=== PATIENT | female | born 1955 | race Caucasian/White ===

== ENCOUNTER 2021-05-17 08:36 | Outpatient (CLI) | payer SELFPAY ==
--- NOTE | 2021-05-17 09:11 | XRAY Report ---
PROCEDURE: Chest 2 View X-Ray INDICATIONS: COUGH TECHNIQUE: 2 view(s) of the chest. COMPARISON: None. FINDINGS: Surgical changes and devices: None. Lungs and pleura: No significant pleural effusion. No pneumothorax. Mild diffuse interstitial promin ence. No consolidation seen. Left nipple shadow. Mediastinum: Mediastinal contours are normal. Heart size is normal. Bones and chest wall: No suspicious bony abnormalities. Soft tissues appear unremarkable. IMPRESSION: Mild diffuse interstitial prominence. This could be seen in atypical pneumonia, pulmonary vasculature engorgement, interstitial lung disease, or atelectasis. Consider further evaluation with high-resolution chest CT in this patient with chronic cough. Reviewed by: Vineet De La Rosa MD on 05/17/2021 9:10 AM [facility] Approved by: Vineet De La Rosa MD on 05/17/2021 9:10 AM [facility] Station ID: [id number]
== END 2021-05-17 23:59 | disposition home or self-care (01) ==
LOC: DI.N 08:36
PROVIDERS: ATTEND Family Medicine
DX: R91.8 Other nonspecific abnormal finding of lung field (principal)

== ENCOUNTER 2021-05-17 15:45 | Outpatient (CLI) | payer SELFPAY | END 2021-05-17 23:59 | disposition home or self-care (01) | LOC: LAB.N 15:45 | PROVIDERS: ATTEND Family Medicine | DX: R05.3 Chronic cough (principal) | CPT/HCPCS: 36415; 86480 ==

== ENCOUNTER 2021-05-25 13:45 | Outpatient (CLI) | payer SELFPAY ==
[2021-05-25 14:10] LABS: BASOPHILS % (AUTO) 0.4 %; EOSINOPHILS # (AUTO) 0.1 10^3/uL (0.0-0.7); EOSINOPHILS % (AUTO) 0.8 %; HCT - HEMATOCRIT 49.9 % (37.0-47.0); LYMPHOCYTES # (AUTO) 1.2 10^3/uL (1.5-3.5); LYMPHOCYTES % (AUTO) 16.1 %; MEAN CORPUSCULAR HEMOGLOBIN 29.6 pg (27.0-31.0); MEAN CORPUSCULAR HGB CONC 32.1 g/dL (32.0-36.0); MEAN CORPUSCULAR VOLUME 92.4 fL (81.0-99.0); MEAN PLATELET VOLUME 8.9 fL (7.9-10.8); MONOCYTES # (AUTO) 0.7 10^3/uL (0.0-1.0); MONOCYTES % (AUTO) 9.4 %; NEUTROPHILS # (AUTO) 5.2 10^3/uL (1.5-6.6); NEUTROPHILS % (AUTO) 72.9 %; PLT - PLATELET COUNT 296 10^3/uL (130-450); RED CELL DISTRIBUTION WIDTH 14.3 % (12.0-15.0); WHITE BLOOD COUNT 7.1 x10^3/uL (4.8-10.8)
[2021-05-25 14:36] LABS: ALBUMIN 4.3 g/dL (3.2-5.5); ALBUMIN/GLOBULIN RATIO 1.1 (1.0-2.2); CALCIUM 9.8 mg/dL (8.5-10.3); CREATININE 0.7 mg/dL (0.4-1.0); CRP - C-REACTIVE PROTEIN 1.4 mg/dL (0-1.0); POTASSIUM 3.8 mmol/L (3.5-5.0); TOTAL PROTEIN 8.2 g/dL (6.7-8.2); URIC ACID 6.4 mg/dL (2.6-7.2)
[2021-05-25 16:33] LABS: RHEUMATOID FACTOR NEGATIVE (Negative)
== END 2021-05-25 13:46 | disposition home or self-care (01) ==
LOC: LAB 13:45
PROVIDERS: ATTEND Internal Medicine
DX: R59.1 Generalized enlarged lymph nodes (principal); Z79.899 Other long term (current) drug therapy; M25.50 Pain in unspecified joint
CPT/HCPCS: 36415; 80053; 83615; 84550; 85025; 85651; 86038; 86140; 86200; 86430

== ENCOUNTER 2021-06-01 13:17 | Outpatient (CLI) | payer SELFPAY | END 2021-06-01 13:18 | disposition home or self-care (01) | LOC: RT 13:17 | PROVIDERS: ATTEND Internal Medicine | DX: R05.3 Chronic cough (principal) | CPT/HCPCS: 94010 ==

== ENCOUNTER 2021-06-08 08:00 | Outpatient (CLI) | payer SELFPAY | END 2021-06-08 23:59 | LOC: LAB.F 08:00 | PROVIDERS: ATTEND Internal Medicine | DX: J47.1 Bronchiectasis with (acute) exacerbation (principal); R94.2 Abnormal results of pulmonary function studies | CPT/HCPCS: 87070; 87205 ==

== ENCOUNTER 2021-06-09 13:22 | Outpatient (CLI) | payer SELFPAY ==
--- NOTE | 2021-06-09 15:29 | CT Report ---
PROCEDURE: CHEST WO INDICATIONS: BRONCHIECTASIS TECHNIQUE: Noncontrast 1mm axial images were acquired from the pulmonary apices to the posterior costophrenic an gles. Axial 5 mm soft tissue kernel reconstructions were performed as well as 8 mm axial MIP and cor onal and sagittal 5 mm reformations. For radiation dose reduction, the following was used: automate d exposure control, adjustment of mA and/or kV according to patient size. COMPARISON: CXR 05/17/2021. FINDINGS: Image quality: Excellent. Lungs and pleura: Innumerable pulmonary nodules, the majority are small. Left upper lobe medial pulm onary mass measuring 3.6 x 3 cm, (4/66). Left lower lobe pulmonary nodule measuring 1.2 cm, (4/204). No acute air space opacities. No pneumothorax. Small left pleural effusion. Mild thickening at the le ft lateral pleura. No effusion on the right. Central and peripheral airways are patent and normal in caliber. Mediastinum: Heart size is normal. No pericardial effusion. Anterior mediastinal node measuring 1.4 cm, (3/14). Thoracic aorta and central pulmonary arteries are normal in size. Esophagus is normal i n caliber. No hiatal hernia. Bones and chest wall: Irregular hypodense lesion in the T10 and T11 vertebral bodies, (10/39). No ve rtebral body compression fractures. No axillary or supraclavicular adenopathy by size criteria. The thyroid is normal in size and there are no incidental findings. Abdomen: Ill-defined hypodense lesions in the liver most likely resents meniscectomy disease. Gallsto mauro. No adrenal nodule. IMPRESSION: Findings most consistent with multifocal metastatic disease. 1. Left upper lobe mass measuring 3.6 cm. Left lower lobe pulmonary nodule measuring 1.2 cm. Innumera ble small pulmonary nodules. 2. Anterior mediastinal lymph node measuring 1.4 cm. 3. Small left pleural effusion. 4. Ill-defined liver lesions. 5. T10 and T11 heterogeneous sclerotic lesions. CT abdomen and pelvis with IV contrast would be helpful for further evaluation. Reviewed by: Vineet De La Rosa MD on 06/09/2021 3:27 PM PST Approved by: Vineet De La Rosa MD on 06/09/2021 3:27 PM PST Station ID: [id number]
== END 2021-06-09 13:23 | disposition home or self-care (01) ==
LOC: DI 13:22
PROVIDERS: ATTEND Internal Medicine
DX: J47.1 Bronchiectasis with (acute) exacerbation (principal); J90 Pleural effusion, not elsewhere classified; R91.8 Other nonspecific abnormal finding of lung field

== ENCOUNTER 2021-07-05 18:14 | Outpatient (CLI) | payer BC, MEDICAID ==
[~2021-07-05 18:14] MED LIST: IOPAMIDOL-300 50 ML VIAL ONE; iohexoL-300 100 ML VIAL ONE
[2021-07-05] MEDS ORDERED: iohexoL-300 100 ML VIAL IVP ONE (21:59)
[2021-07-05] MEDS ORDERED: IOPAMIDOL-300 50 ML VIAL PO ONE (21:59)
[2021-07-05 22:11] LABS: CREATININE 0.7 mg/dL (0.4-1.0)
[2021-07-05 22:38] LABS: INR 1.3 (0.8-1.2); PARTIAL THROMBOPLASTIN TIME 32.3 secs (24.9-33.3); PT - PROTHROMBIN TIME 14.4 secs (9.9-12.6)
--- NOTE | 2021-07-06 08:16 | CT Report ---
PROCEDURE: ABD & PELVIS CT W/CONTRAST INDICATIONS: Lung CA, Omni 300 100ml, Isovue 300 PO 50m; Prior: none CONTRAST: Omnipaque 300, 100 mL TECHNIQUE: After the administration of oral and intravenous contrast, 5 mm thick sections acquired from the diap hragms to the symphysis. 5 mm thick coronal and sagittal reformats were acquired. For radiation dos e reduction, the following was used: automated exposure control, adjustment of mA and/or kV accordin g to patient size. COMPARISON: CT chest from today, CT chest dated 06/09/2021 FINDINGS: Image quality: Excellent. ABDOMEN: Lung bases: Too numerous to count tiny pulmonary metastatic lesions, in a pattern suggestive of milia ry spread of a static disease. Additionally, there is a lesion in the left lung base just anterior to the left pleural effusion which measures approximately 1.1 cm. Please refer to a different report fo r pulmonary findings. Moderate left pleural effusion. Heart size is normal. Solid organs: There is liver metastatic disease present. On image 18/5 is a posterior segment right l obe liver lesion measuring 2.9 cm. On image 19/5 is a 2.6 cm posterior segment right lobe liver lesio n. There is a probable splenic metastatic lesion measuring 1.8 cm on image 20/5. Gallbladder contains multiple gallstones. Biliary system is non dilated. Pancreas enhances normally. No adrenal nodule s. Kidneys demonstrate normal size and enhancement, without hydronephrosis. Peritoneum and bowel: Bowel loops demonstrate normal wall thickness and caliber. No free fluid or a ir. Nodes and vessels: No retroperitoneal or mesenteric adenopathy by size criteria. Aorta and inferior vena cava are normal in size. Miscellaneous: No ventral hernias. PELVIS: Genitourinary: Bladder wall thickness is normal. Miscellaneous: No inguinal hernias or adenopathy. Bones: There is mixed lytic and blastic metastatic disease involving T10 and T11 vertebral bodies. Th ere is a lytic lesion involving the right side of S1. With possible soft tissue mass extending into t he right S1 sacral canal, potentially resulting in a right S1 radiculopathy. As lumbar degenerative c hange. IMPRESSION: 1. Remarkably extensive tiny metastatic disease in the lungs, consistent with miliary spread of metas tatic disease. Please refer to a separate report for CT chest findings. 2. Associated left pleural effusion. 3. Hepatic metastatic disease. 4. Probable splenic metastatic disease. 5. Bony metastatic disease, including mixed lytic and sclerotic lesions of T10 and T11, as well as a lytic disease of the right side of S1 with possible associated soft tissue mass in the right S1 sacra l alae. Reviewed by: Pranav Gunter MD on 07/05/2021 4:47 PM PST Approved by: Pranav Gunter MD on 07/05/2021 4:47 PM PST Station ID: [id number]
--- NOTE | 2021-07-06 08:24 | CT Report ---
PROCEDURE: CHEST W INDICATIONS: LUNG CA CONTRAST: IV CONTRAST: Isovue 300 ml: 100 PO CONTRAST: Isovue 300 ml50 TECHNIQUE: After the administration of intravenous contrast, 1 mm axial images were acquired from the pulmonary apices through the posterior costophrenic angles. Axial 5 mm soft tissue kernel reconstructions were performed as well as 8 mm axial MIP and coronal and sagittal 5 mm reformations. For radiation dose reduction, the following was used: automated exposure control, adjustment of mA and/or kV according to patient size. COMPARISON: CT dated 06/09/2021 FINDINGS: Image quality: Excellent. Lungs and pleura: No acute air space opacities. There is a mass within the left upper lobe anterome dially, as before, which is not significantly changed in size, measuring roughly 45 mm anteroposterio r by 30 mm transverse. Multiple small bilateral left greater than right pulmonary nodules are present , as before, largest of which is in the left lung base posterior laterally, measuring roughly 10 mm d iameter, as before. No pneumothorax. Small left pleural effusion. Central and peripheral airways are patent and normal in caliber. Mediastinum: Heart size is normal. No pericardial effusion. No change in prevascular lymph node me asuring 10 mm short axis.. Thoracic aorta and central pulmonary arteries are normal in size. Esopha simona is normal in caliber. No hiatal hernia. Bones and chest wall: Ill-defined lytic and sclerotic foci within the T10 and T11 vertebral bodies pr esent, as before. There is evidence of paraspinal soft tissue extension and anterior epidural spread. . No vertebral body compression fractures. No axillary or supraclavicular adenopathy by size criter ia. The thyroid is normal in size and there are no incidental findings.. Abdomen: Visualized portions of the upper abdomen demonstrate no significant change in ill-defined h epatic lesions. IMPRESSION: 1. No significant change in left upper lobe mass and multiple bilateral pulmonary nodules. 2. Increased, small left pleural effusion. 3. No change in mildly enlarged anterior mediastinal lymph node. 4. No significant change in lower thoracic metastases associated with probable epidural tumor spread. Initial further assessment with thoracic spine MRI with and without intravenous contrast is recommen ded. CLINICAL RECOMMENDATION STATEMENTS: In patients <35 years with an ITN detected on CT, MRI, or extrathyroidal ultrasound, the Committee re commends further evaluation with dedicated thyroid ultrasound if the nodule is "e1 cm and has no susp icious imaging features, and if the patient has normal life expectancy. In patients "e35 years with an ITN detected on CT, MRI, or extrathyroidal ultrasound, the Committee r ecommends further evaluation with dedicated thyroid ultrasound if the nodule is "e1.5 cm and has no s uspicious imaging features, and if the patient has normal life expectancy. (ACR, 2014) Reviewed by: Jose Garduno MD on 07/06/2021 8:23 AM PST Approved by: Jose Garduno MD on 07/06/2021 8:23 AM PST Station ID: [id number]
== END 2021-07-05 18:15 | disposition home or self-care (01) ==
LOC: DI 18:14
PROVIDERS: ATTEND Internal Medicine Hematology & Oncology
DX: R94.2 Abnormal results of pulmonary function studies (principal); J47.1 Bronchiectasis with (acute) exacerbation; C34.12 Malignant neoplasm of upper lobe, left bronchus or lung; R91.8 Other nonspecific abnormal finding of lung field; J90 Pleural effusion, not elsewhere classified; C79.51 Secondary malignant neoplasm of bone; R59.0 Localized enlarged lymph nodes; C78.02 Secondary malignant neoplasm of left lung; C78.01 Secondary malignant neoplasm of right lung; C78.7 Secondary malignant neoplasm of liver and intrahepatic bile duct; R93.89 Abnormal findings on diagnostic imaging of other specified body structures
CPT/HCPCS: 36415; 71260; 74177; 82565; 85049; 85610; 85730; Q9967

== ENCOUNTER 2021-07-06 09:00 | Outpatient (CLI) | payer BC, MEDICAID ==
--- NOTE | 2021-07-06 18:14 | CONSULTATION NOTE ---
Palliative Care Consultation - Referral Referring Provider: Dr. Nely Ocampo Time of Visit: [id number] Referral setting: Home Referral Reason: Met cancer of unknown primary/Pain of neoplastic origin/failure to thrive - Information Sources Records reviewed: Previous records reviewed History/Review of Systems obtained from: Patient, Family ( Aris present) Exam limitations: No limitations - History of Present Illness Brief History of Present Illness: This is an unfortunate 65-year-old woman who has had several years of fluctuating health. She reports a history several years back [id number], where doctors were trying to work her up for most likely an autoimmune disorder, looking at RA, lupus, fibromyalgia without ever defining her underlying etiology. She reports she at one point was on 24 medications and quite drugged up, including pain medications, baclofen, and long-term high-dose prednisone. She became bedbound, continued to decline functionally, and lost all abigail in the medical system. She did overtime improve her health by weaning herself off the medications, changing her diet, concentrating on her relationship with God, and finding a distraction in and out with her creativity. She did take up photography, newspaper writing, and was doing fairly well though did describe intermittent severe flares of pain, but would resolve after a few days. These flares were every few weeks to months, and then have become more often. In 2018 she developed a severe cough, that included significant amounts of phlegm and over the last several months, worsening bone and joint pain, and now is quite debilitated. She was feeling at this point because it was persistent, most likely was not serious, and is not certified at her underlying diagnosis of cancer. Did seek evaluation at urgent care, which they did do a chest x-ray and recommended CT scan. She did see primary care, where was getting a work-up and sent out for luminary symptoms. She did get a CT scan which showed concern for malignancy on 06/09. Patient moved to [facility] about 2 years ago, unfortunately with the move came Covid, and has been quite isolated. She had hoped to become engaged in art community, but continued to have failing health. She has continued to lose significant amounts of weight, dropped about 27 pounds over the last month, reports pressure in her chest, difficulty taking more than just fluids, can take small amounts of soft things, is pushing fluids but is not meeting caloric needs. She reports when she eats she has severe stomach pain, makes her more lethargic and causes cramping. She is having trouble with swallowing, this is related to choking and phelgm. She presents with escalating and uncontrolled pain, she was given some oxycodone by oncology, but has been hesitant to use this as there is only a small quantity. We did discuss the small quantity was prescribed in preparation for palliative care referral. Patient reports her pain is at 8 out of 10, is quite limiting. It worsens with any weightbearing. She identifies it in multiple different spots, most acutely over her right abdominal area, severe tenderness with palpation. She has a spot on her left shoulder up in her right hip area feeling like it may "break". She has pain in her tailbone, up her thoracic spine And has not really been able to get much rest. She does not have any numbness and tingling, but does have bilateral knee pain and a spot in her left ankle. She is barely ambulatory, secondary to pain, they are obtaining hopefully a bedside commode from [employer]. She has not been able to shower, secondary to pain and fatigue and weakness. She continues to struggle with phlegm and choking, does have an albuterol nebulizer that she is using 3 times a day with some improvement with this. She also describes some vision changes, and intermittent headaches as well as periorbital numbness that fluctuates. Patient is getting a work-up, has just obtained a CT scan of the chest and abdomen, and review at this. The lung showed numerous too many to count pulmonary metastatic lesions suggestive of a miliary spread of static disease, there is a lesion in the left lung base and a left pleural effusion. There is liver metastatic disease present, with lesion of 2.9 cm, noted probable splenic metastatic disease, and bony metastatic disease including mixed lytic and sclerotic lesions of T10 and T11 which does correlate with her area of pain, as well as the right side of S1 with a possible soft tissue mass on S1 sacral area.She is pending a liver biopsy on 07/09. She has had functional decline, she is quite appropriately depressed and tearful, and recognizing the seriousness of her illness. It is very difficult for them to get her out of the house. Medical/Surgical History - Past Medical History Cardiovascular: reports: None Respiratory: reports: Shortness of breath, Other (persistent cough since 2018) Neuro: Headaches Endocrine/Autoimmune: reports: Other (poss hx of immune dx of lupus/RA/fibromyalgia) Psych: reports: Depression, Anxiety Musculoskeletal: reports: Osteoarthritis, Fibromyalgia, Fatigue MRSA Hx?: No - Past Surgical History /[employer]INTS [employer]IMMER: reports: section, Dilation and currettage Social History - Living Situation Living arrangement: At home Living Situation: With spouse/s.o. Support System: Patient and have been for 25 years, her works here at the hospital and needs to continue working as much as possible. They are exploring [place] have been in touch with seniors information services, recommended for further follow-up secondary to the length of time this takes. At this point time she can get to the bathroom, but is at high risk for falls. They do not have children nor any family nearby. They have not been here long enough to set up community, and moved right when Covid was starting. Family History - Family History Family History: Mother: , Father: Medications/Allergies - Medications Home Medications: Ambulatory Orders Medication Instructions Recorded Confirmed oxyCODONE [Roxicodone] 10 mg PO Q3HR PRN 06/29/21 07/06/21 Albuterol 1 amp INH TID 07/06/21 07/06/21 Ondansetron HCl [Zofran] 4 mg PO Q6HR PRN 07/06/21 07/06/21 Senna [Senokot] 2 tab PO DAILY MDD 8 tabs 07/06/21 07/06/21 dexAMETHasone [Decadron] 2 mg PO BIDWM 07/06/21 07/06/21 guaiFENesin [Giltuss Ex] 400 mg PO Q4HR PRN 07/06/21 07/06/21 polyethylene glycoL 3350 [Miralax] 17 gm PO DAILY MDD bid 07/06/21 07/06/21 - Allergies Allergies/Adverse Reactions: Allergies Allergy/AdvReac Type Severity Reaction Status Date / Time acetaminophen Allergy Unknown Verified 07/07/21 10:15 Penicillins Allergy Unknown Verified 07/07/21 10:15 Review of Systems - Constitutional Constitutional: reports: Fatigue (worsening), Weakness, Poor appetite, Weight loss. denies: Fever, Chills - Eyes Eyes: reports: Blurred vision, Vision loss - Ears, Nose & Throat Ears, Nose & Throat: reports: Hearing loss, Dry mouth - Cardiovascular Cardiovascular: reports: Lightheadedness, Exertional dyspnea, Decr. exercise tolerance - Respiratory Respiratory: reports: Cough (coughing "spasms" lasting 5 minutes with trying to move phelgm; has helped with albuteral), SOB at rest, SOB with exertion. denies: Wheezing, Hemoptysis - Gastrointestinal Gastrointestinal: reports: Abdominal pain, Constipation (rare BM since not eating), Nausea, Vomiting (triggered by coughing), Poor appetite, Early satiety. denies: Reflux/heartburn - Genitourinary Genitourinary: reports: Frequency - Musculoskeletal Musculoskeletal: reports: Muscle pain, Back pain, Muscle aches, Stiffness, Limited range of motion, Muscle weakness, Joint pain - Integumentary Integumentary: reports: Dryness - Neurological Neurological: reports: General weakness, Headache, Dizziness - Psychiatric Psychiatric: reports: Depression, Anxiety - All Other Systems All Other Systems: reports: Reviewed and negative Physical Exam - Vital Signs Temperature: 97.3 C Pulse Rate: 97 Respiratory Rate: 18 O2 Saturation: 93 (ra @ rest) Blood Pressure: 138/74 - Physical Exam General Appearance: positive: Alert, Moderate distress, Anxious Eyes Bilateral: positive: Normal inspection ENT: negative: Oral lesions Neck: positive: Trachea midline Cardiovascular: positive: Tachycardia Respiratory: positive: Diminished throughout. negative: No respiratory distress (with any effort RR), Wheezes, Rales, Rhonchi Abdomen: positive: Soft, Tenderness, Guarding Skin: positive: Pallor, Dryness Extremities: positive: No pedal edema Neurologic/Psychiatric: positive: Oriented x3, Depressed mood/affect, Flat affect, Other (tearful and anxious) Palliative Care - POLST Patient has POLST: No Pain: Pain worsening, Location (see HPI multiple areas of pain and discomfort) Tiredness/Fatigue: Severe (7-10) Drowsiness/Sedation: Mild (1-3) Nausea: Moderate (4-6), With vomiting Anorexia: Severe (7-10) Dyspnea: Severe (7-10) Depression: Severe (7-10) Anxiety: Severe (7-10) Feelings of wellbeing/Perceived Quality of Life: Poor, Worsening Sleep: Sleeps poorly Constipation: Yes, Unmanaged Performance Status: Patient has had a dramatic decline in her functional status, is mostly in the recliner or the bed. She has significant pain and anxious about weightbearing with having something "break". She is quite weak and deconditioned. She is not been able to shower, they do need some personal care assistance. - Palliative Care Discussion: Patient has significant distrust of the medical system, given her history both in the past, and most recently in the context of delivery of her news of her cancer. She very much enjoyed her visit with oncology, but is worried that there will be little to offer given how seriously ill and how much she has declined. She is quite tearful through the visit, does recognize the seriousness of her illness, after much discussion weighing benefits of burdens, we did discuss at any point could choose to transition to comfort focused care or hospice. At this point they would like to move forward with the biopsy, and have more information, but her pain is poorly controlled and is impacting her will to continue. She does have a deep abigail, is not connected with any mormon, is open to having the [employer]mo business analyst come provide support. We will make a referral. Both she and her are overwhelmed, they do need more resources, currently working with [employer], did have a Social Security interview at the end of my visit, and wondering what resources she can access. They are going to follow-up with [employer] for equipment recommended obtaining walker as soon as possible. Will revisit advanced care planning at Monday visit given her acute pain crisis currently. Results - Lab Results Lab results reviewed: Yes Impression and Recommendations - Palliative Care Impression: This is a 65-year-old woman who presents with cancer of unknown origin, with known lung mass and nodules, liver mets, and bony mets. She presents in acute pain crisis, appropriately anxious and depressed, awaiting further staging and work-up to further define goals of care. Palliative care providing support for pain and symptom management, advance care planning, and coordination of care. Recommendations/Counseling Done: 1. Pain of neoplastic origin. Patient presents with multifactorial pain, including deep aching visceral pain and tenderness, bony pain, muscle and joint pain, and headache. Patient has trialed small dose oxycodone with very little effect, and anxious to not "run out". We will go ahead and titrate to effect, patient has been instructed to use 2 tabs every 3 hours as needed and keep track, will take next 24 to 48 hours total and changed to long-acting. Counseling provided regarding pain management and principles. We will also start dexamethasone 2 mg twice daily a day with food/cracker secondary to pain and poor appetite. 3. Cough. This appears to be fairly significant, she does have some response to albuterol nebulizer, does break it up to be able to express the phlegm. Did recommend guaifenesin syrup 400 mg every 46 hours to thin secretions, and can use or add saline "fishes" in between nebulized solution secretions. We will continue to monitor for appropriate medications for nebulizer. 3. Anorexia. Patient has early satiety, pain with eating, difficulty swallowing and choking both related to phlegm and feeling obstructed. Patient is getting less than her adequate calories, we will go ahead and recommend resource breeze supplements 2-3 times a day, this does not have any milk product in it. Recommended small frequent high-calorie fluids, hopefully with dex amethasone may improve her appetite. Patient also with low-grade nausea, ondansetron 4 mg ordered for 1 every every 6 hours as needed for nausea and vomiting. Patient is also been constipated. 4. Constipation. Patient minimal bowel movements, though attributes this to decreased intake. We did discuss still needs to have a regular bowel movement every 2448 hrs. even if a small amount. Will obtain and start MiraLAX 1 capful daily, and senna concentrate 8.6 mg 2 tabs at bedtime. Counseling provided regarding bowel program and titration. Instructions written out. 5. Generalized weakness. Patient at high risk for falls, did provide number for lift assist if patient needs assistance from the floor given her fragile condition. Did recommend obtaining walker [facility] for balance and offloading of her hip area. Also recommended reach out to [employer] to get a wheelchair as well as rolling walker and commode. 6. Anxiety. This is multifactorial and appropriate given her situation, at this point in time will await further pharmacologic intervention, until pain better controlled. 7. Advanced care planning. Patient without any advance care planning documents, will revisit with next visit. Counseling provided regarding the continuum of care, trying to tease out goals of care, patient does recognize the seriousness of her illness at this point in time they would like to proceed with the biopsy and continue to weigh benefits and burdens of treatment options as they are presented. Patient though presents with an ECOG 3, is nonambulatory, significant weight loss, high symptom burden, and significant functional decline over the last several weeks. 75 minutes was given 50% of this done in counseling regarding pain and symptom management, support for anxiety, anticipatory guidance and role of palliative care, development of rapport. Plan for Monday visit
== END 2021-07-06 09:01 | disposition home or self-care (01) ==
LOC: PC 09:00
PROVIDERS: ATTEND Nurse Practitioner Adult Health
DX: Z51.5 Encounter for palliative care (principal); G89.3 Neoplasm related pain (acute) (chronic); R05.3 Chronic cough; R63.0 Anorexia; R63.4 Abnormal weight loss; R68.81 Early satiety; R13.10 Dysphagia, unspecified; R11.0 Nausea; K59.00 Constipation, unspecified; R53.1 Weakness; F41.9 Anxiety disorder, unspecified; R06.02 Shortness of breath; R53.83 Other fatigue; C79.51 Secondary malignant neoplasm of bone; C78.00 Secondary malignant neoplasm of unspecified lung; C78.7 Secondary malignant neoplasm of liver and intrahepatic bile duct; J90 Pleural effusion, not elsewhere classified; C80.1 Malignant (primary) neoplasm, unspecified; Z74.1 Need for assistance with personal care; Z60.8 Other problems related to social environment; Z74.09 Other reduced mobility
CPT/HCPCS: 99345

== ENCOUNTER 2021-07-08 07:45 | Outpatient (CLI) | payer BC, MEDICAID ==
[2021-07-08] MEDS ORDERED: LACTATED RINGERS 1,000 ML IV ONE ×2 (08:15→11:35)
[2021-07-08] MEDS ORDERED: lidocaine 1% 20 ML MDV ONE (10:24)
[2021-07-08] MEDS ORDERED: MIDAZOLAM 2 MG/2 ML VIAL ONE (10:45)
[2021-07-08] MEDS ORDERED: fentaNYL 100 MCG/2 ML VIAL ONE (10:46)
[2021-07-08] MEDS ORDERED: iohexoL-300 100 ML VIAL ONE (11:51)
--- NOTE | 2021-07-08 12:23 | XRAY Report ---
PROCEDURE: Chest 1 View X-Ray INDICATIONS: IMEDIATE AFTER LUNG BIOPSEY TECHNIQUE: One view of the chest was acquired. COMPARISON: Chest CT 07/05/2021 FINDINGS: Surgical changes and devices: None. Lungs and pleura: No pneumothorax post left lung biopsy. There is persistent opacity at the left lung base consistent with small persistent effusion. There is a diffuse micronodular pattern in the lungs bilaterally. Left suprahilar lung mass projects over the aortic arch region. Mediastinum: Mediastinal contours appear normal. Heart size is normal. Bones and chest wall: No suspicious bony lesions. Overlying soft tissues appear unremarkable. IMPRESSION: 1. No pneumothorax post left lung mass biopsy. 2. Persistent small left pleural effusion and diffuse micronodular pattern. Reviewed by: Yamel Jaimes MD on 07/08/2021 12:21 PM PST Approved by: Yamel Jaimes MD on 07/08/2021 12:21 PM PST Station ID: [id number]
--- NOTE | 2021-07-08 16:03 | XRAY Report ---
PROCEDURE: Chest 1 View X-Ray INDICATIONS: 2HR POST LUNG BIOPSEY COMMENTS: 2hr post lung biopsey PRIORS: today TECHNIQUE: One view of the chest was acquired. COMPARISON: Chest x-ray from earlier today FINDINGS: Surgical changes and devices: None. Lungs and pleura: Density above the aortic knob consistent with known mass. There is elevation of th e left hemidiaphragm and blunting of the left costophrenic angle consistent with left pleural effusio n. No pneumothorax. Mediastinum: Mediastinal contours appear normal. Heart size is normal. Bones and chest wall: No suspicious bony lesions. Overlying soft tissues appear unremarkable. IMPRESSION: No pneumothorax status post lung biopsy. Reviewed by: Jeferson Jordan on 07/08/2021 4:02 PM [facility] Approved by: Jeferson Jordan on 07/08/2021 4:02 PM [facility] Station ID: [id number]
--- NOTE | 2021-07-08 16:03 | XRAY Report ---
PROCEDURE: Chest 1 View X-Ray INDICATIONS: 4HR POST LUNG BIOPSEY COMMENTS: 4 HOUR POST LUNG BIOPSY PRIORS: 07/08/21 TECHNIQUE: One view of the chest was acquired. COMPARISON: Chest x-ray from earlier today FINDINGS: Surgical changes and devices: None. Lungs and pleura: Density above the aortic knob consistent with known mass. There is elevation of th e left hemidiaphragm and blunting of the left costophrenic angle consistent with left pleural effusio n. No pneumothorax. Mediastinum: Mediastinal contours appear normal. Heart size is normal. Bones and chest wall: No suspicious bony lesions. Overlying soft tissues appear unremarkable. IMPRESSION: No pneumothorax status post lung biopsy. Reviewed by: Jeferson Jordan on 07/08/2021 4:02 PM [facility] Approved by: Jeferson Jordan on 07/08/2021 4:02 PM [facility] Station ID: [id number]
[2021-07-08 16:32] VITALS: BP 143/74
--- NOTE | 2021-07-08 16:37 | CT Report ---
PROCEDURE: LT LUNG BX PERC INDICATIONS: LUNG CA COMPARISON: CT of the chest dated 07/05/2021 PROCEDURE: 1. CT-guided lung biopsy. 2. Moderate sedation. TECHNIQUE: CT of the chest was performed with contrast demonstrating the targeted nodule in the left upper lobe and the position of the left internal mammary artery, as well as other vasculature. The patient was t hen placed in the CT and initial utility spray operator images were performed. The trajectory was planned and the over lying skin was marked. The area was prepped and draped in a sterile fashion. A timeout was performed to verify patient identity and the proposed procedure. Moderate sedation was administered by the nurs e. The overlying soft tissue was then anesthetized with lidocaine infiltration. A 17-gauge trocar was then advanced through the chest wall into the mass with no difficulty. The 18-gauge core biopsy was then deployed and a total of 2 core biopsies were obtained. The trocar was then removed. The patient tolerated procedure well without complication. FINDINGS: Initial CT demonstrated the mass and adjacent arteries. Intraprocedural CT demonstrates appropriate p lacement of the needle into the mass. Postprocedural CT demonstrates no pneumothorax, hemorrhage, or other complication. IMPRESSION: Successful CT-guided biopsy of a left upper lobe mass without complication. Reviewed by: Jeferson Jordan on 07/08/2021 4:36 PM PST Approved by: Jeferson Jordan on 07/08/2021 4:36 PM PST Station ID: [id number]
== END 2021-07-08 07:46 | disposition home or self-care (01) ==
LOC: DI 07:45
PROVIDERS: ATTEND Internal Medicine Hematology & Oncology
DX: C34.92 Malignant neoplasm of unspecified part of left bronchus or lung (principal); Z20.822 Contact with and (suspected) exposure to COVID-19
CPT/HCPCS: 32408; 87635; J7120; Q9967

== ENCOUNTER 2021-07-09 09:30 | Outpatient (CLI) | payer BC, MEDICAID ==
--- NOTE | 2021-07-09 15:47 | CONSULTATION NOTE ---
Palliative Care Follow Up - Referral Referring Provider: Dr. Nely Ocampo Time of Visit: [id number] Referral setting: Home Referral Reason: Pain of neoplastic origin/Met CA of unknown origin/Depression - Information Sources Records reviewed: Previous records reviewed History/Review of Systems obtained from: Patient Exam limitations: No limitations - History of Present Illness Update Brief HPI Update: This is a 65-year-old old woman who has recently been diagnosed with cancer of unknown origin, please see HPI from 07/06/2021 regarding for palliative care consultation. Patient had significant escalating uncontrolled pain, did start her on more aggressive regimen, today she reports "it is a world of difference", she is feeling both better physically and emotionally with her pain better controlled. She did have a biopsy yesterday CT-guided, they were able to do a lung biopsy. She tolerated it well. No complications. She has started on her morphine sustained release 30 mg, did hit some questions because of insurance, we will go ahead and bump her up to 30 mg 3 times daily, she is tolerating 3 oxycodone equals 15 mg every 3 hours [id number]. Her pain is mostly in her right groin, abdomen right upper quadrant, as well as her left shoulder and traveling pain to joints. She was able to start the dexamethasone also 2 mg twice daily, she has having a small amount of pruritus, which started recently. We will continue to monitor. She has had decreased coughing spasms, is using albuterol in small doses to keep her cough down. 1 thing she is continuing with is continued difficulty swallowing, and has been only able to take fluids or very soft/pured foods. She does feel like she is staying hydrated, but is getting less and her needed calories. She reports she did sleep fairly well for several hours, her bowels have still not moved, she is still having some nausea and gagging when she is attempting to eat. She is also complaining of dry mouth, she had been treated with Diflucan weekly, reports he feels back up, she does have dentures, she does present with symptoms and on observation signs of oral candidiasis. Past Medical History: History of an autoimmune disorder, possible RA, lupus, fibromyalgia. Osteoarthritis, persistent cough since 2018, depression, anxiety, headaches Social History - Living Situation Living arrangement: At home Living Situation: With spouse/s.o. Support System: Patient lives at home with her second , they have been for 25 years. She does have 3 children from a previous marriage, but is mostly estranged from her 3 sons. They do not know she is seriously ill. They have minimal support out here, and came about the time Covid started. 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, patient's increasing care needs, and worsening health status Medications/Allergies - Medications Home Medications: Ambulatory Orders Medication Instructions Recorded Confirmed oxyCODONE [Roxicodone] 10 - 20 mg PO Q3HR PRN 06/29/21 07/11/21 Albuterol 1 amp INH TID 07/06/21 07/11/21 dexAMETHasone [Decadron] 2 mg PO BIDWM 07/06/21 07/11/21 Morphine ER [Morphine Sulfate ER] 30 mg PO TID 07/07/21 07/11/21 Senna [Senokot] 2 mg PO TID 07/08/21 07/11/21 Nystatin [Mycostatin] 5 ml PO QID MDD 10 days 07/11/21 07/11/21 polyethylene glycoL 3350 [Miralax] 17 gm PO DAILY 07/11/21 07/11/21 - Allergies Allergies/Adverse Reactions: Allergies Allergy/AdvReac Type Severity Reaction Status Date / Time acetaminophen Allergy Anxiety Verified 07/07/21 13:54 Penicillins Allergy Hives Verified 07/07/21 13:54 Review of Systems - Constitutional Constitutional: reports: Fatigue (persistent), Weakness, Poor appetite, Weight loss. denies: Fever, Chills - Eyes Eyes: reports: Blurred vision, Vision loss - Ears, Nose & Throat Ears, Nose & Throat: reports: Hearing loss, Dentures, Mouth lesions (noted candidiasis on tongue; had been on diflucan weekly), Dry mouth - Cardiovascular Cardiovascular: reports: Lightheadedness, Exertional dyspnea, Decr. exercise tolerance - Respiratory Respiratory: reports: Cough (coughing spasms are improving), SOB at rest, SOB with exertion. denies: Wheezing, Hemoptysis - Gastrointestinal Gastrointestinal: reports: Abdominal pain, Constipation (rare BM since not eating), Nausea, Vomiting (triggered by coughing), Poor appetite, Early satiety. denies: Reflux/heartburn - Genitourinary Genitourinary: reports: Frequency - Musculoskeletal Musculoskeletal: reports: Muscle pain, Back pain, Muscle aches, Stiffness, Limited range of motion, Muscle weakness, Joint pain - Integumentary Integumentary: reports: Dryness - Neurological Neurological: reports: General weakness, Headache, Dizziness - Psychiatric Psychiatric: reports: Depression, Anxiety - All Other Systems All Other Systems: reports: Reviewed and negative Physical Exam - Vital Signs Temperature: 97.7 C Pulse Rate: 103 Respiratory Rate: 18 O2 Saturation: 91 (room air @ rest) Blood Pressure: 122/62 - Physical Exam General Appearance: positive: Alert, Moderate distress, Anxious Eyes Bilateral: positive: Normal inspection, No scleral icterus ENT: positive: Oral lesions Neck: positive: Trachea midline Cardiovascular: positive: Regular rate & rhythm, Tachycardia Respiratory: positive: Diminished throughout. negative: No respiratory distress (with any effort RR), Wheezes, Rales, Rhonchi Abdomen: positive: Soft, Tenderness, Guarding Skin: positive: Pallor, Dryness Extremities: positive: No pedal edema Neurologic/Psychiatric: positive: Oriented x3, Depressed mood/affect, Flat affect Palliative Care - POLST Patient has POLST: Yes POLST Status: DNR, Selective Treatment (completed at visit) Pain: Pain improved, Location (see HPI), Severity (6/10) Tiredness/Fatigue: Moderate (4-6) Drowsiness/Sedation: Mild (1-3) Nausea: Moderate (4-6) Anorexia: Severe (7-10) Dyspnea: Moderate (4-6) Depression: Moderate (4-6) Anxiety: Severe (7-10) Feelings of wellbeing/Perceived Quality of Life: Poor, Improved Sleep: Sleep improved Constipation: Yes, Opoid induced, Unmanaged Performance Status: Patient continues to have a dramatic decline in her functional status, spending most the time in a recliner. She did have a fall, reports no significant injury though is finding it difficult. They did get a rolling walker that is helpful, as well as a bedside commode from [facility]. We will continue to monitor.Patient does need personal care assistance, has started the billy process, shared that this is usually fairly lengthy process, may want to look at hiring assistance in meantime. - Palliative Care Discussion: Patient has been going through that work-up, and hopes to have an idea of what underlying etiology is that her cancer and her decline. She is unclear if she will move forward with treatment, she continues to weigh benefits and burdens regarding this. She is feeling this somewhat more hopeful now that her pain is controlled. She is more willing to hear that there might be some treatment options in the future. She did go through with the biopsy, she is finished her scans, she is meeting with Dr. Ocampo on 07/13/2021 after a call to facilitate appointment.Patient continues to focus on quality of life issues, is worried about being a burden on her . We did discuss advance care planning. Patient was introduced to the POLST, she definitely wants to be a DN AR/DNI and at this point in time weighing benefits and burdens so selective treatments. She is not unclear and the and she may not transition to comfort focused care, but would like to finish her work-up and options before making that decision. We did counseling regarding the continuum of care, including hospice support Impression and Recommendations - Palliative Care Impression: This is a 65-year-old woman who presents with cancer of unknown origin, with known lung mass and nodules, liver mets and bony mets. She is improved from her acute pain crisis from 07/06 with both physically and emotionally feeling better. She is appropriately anxious and depressed, she is in work-up. Awaiting for final definition of goals of care based on this. Palliative care providing support for pain and symptom management, advanced care planning and coordination of care. Recommendations/Counseling Done: 1. Pain of neoplastic origin. Patient presents with multifactorial pain, including visceral, bony pain, muscle and joint pain, and headache is since improved. She is being titrated fairly rapidly, currently on MS sustained release 30 mg 3 times daily, will increase over the weekend as needed. She is continue to take oxycodone 10 to 20 mg every 3 hours, will continue to track. Patient is also been started on dexamethasone 2 mg daily with food secondary to pain and poor appetite. 2. Cough. This does appear to have improved some, she is still going to add saline "fishes" in between nebulized solution, as does help move her secretions. She is feeling less short of breath, and feeling less distressed with decreasing coughing spasms. 3. Anorexia. Patient continues with early satiety, pain with eating, difficulty swallowing and choking. She is pushing fluids, they have ordered resource breeze supplements, unable to use any milk products. She is trying to do small servings of high-calorie fluids, as well as push fluids. Recommended given her nausea, try ondansetron 30 minutes before attempting "a meal". 4. Constipation. Patient with minimal bowel movements, has had hard stools. Increase the MiraLAX today to 1 capful twice daily, she has not obtained medication. Instructed to substitute this to her DOS when obtained. She is also instructed to take her senna 2 tabs 3 times daily, continuing to titrate bowel program. Instructions written out. 5. Anxiety. This is multifactorial and appropriate given her situation, she is much calmer today and was tearful. We will continue to monitor may benefit from sertraline. 6. Generalized weakness. Patient did have a fall, remains at high risk for falls and injury. Does have number for lift assist if needs assistance. She did obtain a walker, as well as commode. We will continue to monitor. 7. Oral candidiasis. Patient has had long-term extended oral candidiasis suspected as both immunocompromise as well as use of her nebulizer. Reminded her with good oral care, she does have dentures, she has been on Diflucan. We will go ahead and order nystatin 5 mils 4 times a day, see if can improve, as Diflucan works for couple days and then reoccurs. 8. Advanced care planning. Patient's by default would be the DPOA, they have been talking to the weekend. Patient still presents as an ECOG 3 which is nonambulatory with significant weight loss, high symptom burden and significant functional decline unclear if she is going to be able to tolerate treatment into the future. Did go ahead and complete a POLST with DNR/DNI and selective treatments. was not at visit, the patient received as feeling somewhat anxious to have appropriate paperwork in place. 60 minutes with greater than 50% of this time in counseling regarding goals of care, completing the POLST, pain and symptom management, and anticipatory guidance.
== END 2021-07-09 09:31 | disposition home or self-care (01) ==
LOC: PC 09:30
PROVIDERS: ATTEND Nurse Practitioner Adult Health
DX: Z51.5 Encounter for palliative care (principal); G89.3 Neoplasm related pain (acute) (chronic); C80.1 Malignant (primary) neoplasm, unspecified; F32.A Depression, unspecified; R05.9 Cough, unspecified; R63.0 Anorexia; F41.9 Anxiety disorder, unspecified; R53.1 Weakness; B37.0 Candidal stomatitis; Z66 Do not resuscitate; Z91.81 History of falling; K59.03 Drug induced constipation
CPT/HCPCS: 99350

== ENCOUNTER 2021-07-15 10:00 | Outpatient (CLI) | payer BC, MEDICAID ==
--- NOTE | 2021-07-15 19:15 | CONSULTATION NOTE ---
Palliative Care Follow Up - Referral Referring Provider: Dr. Nely Ocampo Time of Visit: 10:00 - 11 Referral setting: Home Referral Reason: Pain of neoplastic origin/Met Lung CA/Depression - Information Sources Records reviewed: Previous records reviewed History/Review of Systems obtained from: Patient Exam limitations: No limitations - History of Present Illness Update Brief HPI Update: This is a 65-year-old woman who was recently diagnosed with stage IV lung cancer, with mets to the lymph nodes, bones, and liver. She has met with Dr. Ocampo, who would like to complete staging with brain MRI. They are still waiting on her tumor molecular profile for further treatment options, she is aware this will impact her prognosis. She would like to discuss further benefits and burdens of moving forward, as she has started out as fairly fatalistic. She is feeling somewhat more hopeful now. Patient is feeling better overall in the context her pain is improved. She is currently on 60 mg 3 times daily, though is having increased pain at nighttime, will increase nighttime dosing to 120. She is using oxycodone 10 mg 1-2 tabs, more often 2 tabs for breakthrough pain. She is using this every 3-4 hours. She is also on dexamethasone 2 mg twice daily, will await final decisions regarding treatment to start taper. This has improved her mood as well is helped her swallowing and gagging, her coughing spasms have decreased as well. She still has some significant dyspnea, is using nebulizer and has initiated alejandrina ine for she is in between, to keep irritation and cough down. Unfortunately she did get constipation with her opioids, she is currently now going fine, she did need mag citrate though but is following a fairly aggressive bowel program, with MiraLAX and senna. Patient is eating better, is having some trouble with pills, reminded her to take them with pudding. She is pushing fluids and staying hydrated. She is still quite weak, but is using a walker for short distances. She is having trouble laying down to breathe, is sitting up in the recliner, would benefit from hospital bed for position changes.She does need to sleep with her head of her bed up 30 degrees or more, and when has coughing spasms does need to be able to change positions quickly. Past Medical History: History of autoimmune disorder, possible RA/lupus/fibromyalgia. Osteoarthritis, persistent cough since 2018, depression, anxiety, headaches Social History - Living Situation Living arrangement: At home Living Situation: With spouse/s.o. Support System: Patient lives with her second , they have been for 25 years. She has 3 children from a previous marriage but is currently estranged from her 3 sons. They have minimal support in the community, is taking at the time COVID started. Her abigail is very important to her, she is very self reflective and meditative. Her works here at the hospital, has been complicated in the context things are quite busy with the COVID outbreak. Patient does have increasing care needs, she is more stable than last meeting, is able to be by herself and access help if needed. Medications/Allergies - Medications Home Medications: Ambulatory Orders Medication Instructions Recorded Confirmed oxyCODONE [Roxicodone] 10 - 20 mg PO Q3HR PRN 06/29/21 07/15/21 Albuterol 1 amp INH TID 07/06/21 07/15/21 dexAMETHasone [Decadron] 2 mg PO BIDWM 07/06/21 07/15/21 Morphine ER [Morphine Sulfate ER] 60 mg PO . 60 AM/60 AFT/120PM 07/07/21 Senna [Senokot] 2 mg PO TID 07/08/21 07/15/21 Nystatin [Mycostatin] 5 ml PO QID MDD 10 days 07/11/21 07/15/21 polyethylene glycoL 3350 [Miralax] 17 gm PO DAILY 07/11/21 07/15/21 Magnesium Citrate 100 ml PO PRN PRN 07/13/21 07/15/21 - Allergies Allergies/Adverse Reactions: Allergies Allergy/AdvReac Type Severity Reaction Status Date / Time acetaminophen Allergy Anxiety Verified 07/07/21 13:54 Penicillins Allergy Hives Verified 07/07/21 13:54 Review of Systems - Constitutional Constitutional: reports: Fatigue (persistent), Weakness, Weight loss. denies: Fever, Chills - Eyes Eyes: reports: Blurred vision, Vision loss - Ears, Nose & Throat Ears, Nose & Throat: reports: Hearing loss, Dentures, Dry mouth. denies: Mouth lesions (responded to Nystatin-doing 2-3 a day) - Cardiovascular Cardiovascular: reports: Lightheadedness, Exertional dyspnea, Decr. exercise tolerance - Respiratory Respiratory: reports: Cough (coughing spasms had resolved until one last night; using saline "fishes" to help too), SOB at rest, SOB with exertion. denies: Wheezing, Hemoptysis - Gastrointestinal Gastrointestinal: reports: Abdominal pain, Nausea (controlled with ondansetron), Vomiting (triggered by coughing), Early satiety (improved). denies: Constipation (resolved doing better), Reflux/heartburn - Genitourinary Genitourinary: reports: Frequency - Musculoskeletal Musculoskeletal: reports: Muscle pain, Back pain, Muscle aches, Stiffness, Limited range of motion, Muscle weakness, Joint pain, Assistive devices (ambulating just a few steps with rolling walker) - Integumentary Integumentary: reports: Dryness - Neurological Neurological: reports: General weakness, Headache, Dizziness - Psychiatric Psychiatric: reports: Depression, Anxiety - All Other Systems All Other Systems: reports: Reviewed and negative Physical Exam - Vital Signs Temperature: 97.0 C Pulse Rate: 83 Respiratory Rate: 93 Blood Pressure: 132/88 - Physical Exam General Appearance: positive: No acute distress, Alert Eyes Bilateral: positive: Normal inspection, No scleral icterus ENT: negative: Oral lesions (improved) Neck: positive: Trachea midline Cardiovascular: positive: Regular rate & rhythm, Tachycardia Respiratory: positive: Diminished throughout. negative: No respiratory distress (with any effort RR), Wheezes, Rales, Rhonchi Abdomen: positive: Soft, Tenderness, Guarding Skin: positive: Pallor, Dryness Extremities: positive: No pedal edema Neurologic/Psychiatric: positive: Oriented x3, Mood/affect nml, Flat affect Palliative Care - POLST Patient has POLST: Yes POLST Status: DNR, Selective Treatment Pain: Pain improved, Location (right sacral groin area the worst pain; multiple areas through spine/rib cage area), Severity (improved; moderate vs severe) Feelings of wellbeing/Perceived Quality of Life: Fair, Acceptable, Improved Sleep: Sleep improved, Variable sleep pattern Constipation: Yes, Opoid induced, Intermittent constipation Performance Status: Patient is mostly in the recliner, does feel to have her head up. She is wondering about a hospital bed to facilitate transfers, positioning, and concern for coughing spasms. She is on able at this point to shower independently, is difficult for toileting. They do have a commode if needed, and rolling walker for support for ambulating few steps. - Palliative Care Discussion: Discussion revolved around patient's experience with this, at the point her pain was so bad, he just wanted to be done with this and looking for a durable way to . She is now feeling more hopeful, pain is controlled, she is still struggling with the feeling in her heart of hearts that she does not see she has a long extended period of time. She does not want to have false hope, but wants to be open to at least exploring her options. We did discuss in the context of treatment and the stated age, there are many "miracle" drugs, but need to be a candidate. Recommended she continue to pursue options, including finishing staging with MRI of the brain, and to make an informed decision in the context of declining or excepting treatment into the future. That there is still pieces that are unknown, and at any point she could transition to supportive/hospice care. Patient does want me to follow-up with the [facility] and let them know to move forward with planning for MRI of brain. Results - Lab Results Lab results reviewed: Yes Impression and Recommendations - Palliative Care Impression: This is a 65-year-old woman who presents with metastatic lung cancer stage IV, with known bone, liver, and mediastinal lymph node mets. She is feeling better, though pain continues to be problematic, particularly radiating in the right groin most likely related to the soft tissue mass identified around S1. Pain is worse with weightbearing. Patient is struggling with the seriousness of her illness, and whether to pursue further work-up and treatment versus transition to supportive and hospice care. Palliative care providing support for counseling regarding benefits and burdens, goals of care, and pain and symptom management. Recommendations/Counseling Done: 1. Pain of neoplastic origin. Patient presents with multifactorial pain, including visceral, bone pain, muscle and joint pain, and headache has since improved. She is being titrated fairly rapidly, currently on morphine sustained release 60 mg 3 times daily, will increase nighttime dose to 120 mg to improve sleep and pain relief. She is continue to take oxycodone 20 mg every 3 hours so she is able to extend this more and taking less breakthrough doses. Patient has also been started on dexamethasone 2 mg twice daily for appetite and pain relief. 2. Cough. This does appear to have improved some, she has added saline "fishes" in between nebulized solution to moisten her secretions. She is still feeling short of breath, but less distressed with decrease in coughing spasms. 3. Anorexia. Patient continues with early satiety, she has had decreased pain and nausea with eating, is using ondansetron prior to eating with improvement. She is able to eat soft foods, crackers, is doing better overall. She is pushing fluids and staying hydrated. 4. Constipation. Patient is currently taking MiraLAX daily, encouraged to continue with the senna, is titrating accordingly. She did need some mag citrate to finally get her going, but feels that she is doing better overall regarding this. 5. Metastatic lung adenocarcinoma stage IV. She does have a definitive diagnosis, though still waiting on tumor molecular profile for treatment options and particularly in the context of prognosis. Encouraged her to finish staging, which is important to complete the brain MRI. She is in agreement, will reach out to [facility] for scheduling purposes. Patient is willing to continue to hear what treatment options are, knowing that can transition to supportive or hospice care at any point. 6. Generalized weakness. Patient did have a fall, patient would benefit from hospital bed particularly in the context of positioning for her dyspnea and shortness of breath, she does meet criteria will provide [id number] in visit. She did obtain a rolling walker, as well as a commode, will continue to monitor. 7. Oral candidiasis patient did respond well to nystatin, is able to do it 2-3 times a day, he is feeling like this is helping. 8. Advance care planning. Patient does have a POLST with DNR/DNI and selective treatments, she continues to struggle with making decisions regarding benefits and burdens of treatment. Recommended we continue to gather information before making a definitive further decisions regarding future decisions. [id number] for hospital bed. Patient requires frequent changes in body position and/or has any need to change in body position secondary to coughing spasms, difficulty with swallowing, breathing effort secondary to lung cancer. She does require head of bed elevation greater than 30 degrees most of the time related to problems with aspiration, due to mediastinal pressure of lymph node mets as well as lung cancer. Patient does require positioning in bed body not feasible in normal bed to alleviate her pain for positioning particularly in her bony pelvis, is difficult for her to maneuver without appropriate mobility and needs for transferring to rolling walker or upright for ambulation with walker. 60 minutes with 50% of this time in counseling regarding pain and symptom management, anticipatory guidance, coordination of care with cancer team.
== END 2021-07-15 10:01 | disposition home or self-care (01) ==
LOC: PC 10:00
PROVIDERS: ATTEND Nurse Practitioner Adult Health
DX: Z51.5 Encounter for palliative care (principal); C34.90 Malignant neoplasm of unspecified part of unspecified bronchus or lung; G89.3 Neoplasm related pain (acute) (chronic); C78.7 Secondary malignant neoplasm of liver and intrahepatic bile duct; C77.9 Secondary and unspecified malignant neoplasm of lymph node, unspecified; C79.51 Secondary malignant neoplasm of bone; R05.9 Cough, unspecified; R63.0 Anorexia; K59.00 Constipation, unspecified; R53.1 Weakness; B37.0 Candidal stomatitis; Z66 Do not resuscitate
CPT/HCPCS: 99350

== ENCOUNTER 2021-07-23 11:30 | Outpatient (CLI) | payer BC, MEDICAID ==
--- NOTE | 2021-07-23 17:41 | CONSULTATION NOTE ---
Palliative Care Follow Up - Referral Referring Provider: Dr. Nely Ocampo Time of Visit: 0924-2158 Referral setting: Home Referral Reason: Pain of neoplastic origin/Met Lung Ca with mets to nodes/bone/liver/anxiety - Information Sources Records reviewed: Previous records reviewed History/Review of Systems obtained from: Patient, Family ( Ramiro present) Exam limitations: No limitations (very tearful and anxious) - History of Present Illness Update Brief HPI Update: This is an anxious 65-year-old woman who was recently diagnosed with stage IV lung cancer, with known mets to lymph nodes, bones, and liver. She had a CT scan of the chest and abdomen/pelvis on 07/05 that showed enlarged anterior mediastinal lymph nodes, suspected to be adding to her swallowing problems, lung nodules, metastatic disease involving T8 10 and T11, and lytic lesion involving right side of S1 with soft tissue mass extending into the right S1 sacral canal. This is where she is having most her pain is in her right lower back and pelvis area, as well as known liver mets. She did have some improvement with escalating doses of morphine and oxycodone, and Initiation of dexamethasone 4 mg twice daily. Unfortunately she is still awaiting outcome of final staging, molecular studies, and possible [facility] Testing for be able to move forward with treatment. In the meantime we have had significant difficulty getting appropriate approval of her opioids, through her insurance which has caused her and her severe distress. In the context of this, they did finally pay [facility] for 5 days, and now we are back into the cycle again. Unclear given the seriousness of her diagnosis, escalating pain related to disease prog ression, and indication for malignancy pain what the hold-up has been.Working closely with pharmacy and insurance company, but has not been timely. In the context of this including also denial for molecular testing, patient is overwhelmed and distressed, and had thought about transitioning to hospice just to get her pain controlled.This was not consistent with her goals, which was to finish her work-up, review treatment plan, and move towards palliative treatment and the need for palliative radiation is quite evident. This is also caused severe distress between her and her , uncontrolled pain, increasing care needs, financial stressors, and her increasing dependence. Palliative Care PHOTO JOURNALIST meeting with patient and in home, to further elicit goals of care, continue to focus on quality of life issues, and pain management. Past Medical History: History of autoimmune disorder, possible RA/lupus/fibromyalgia. Osteoarthritis, persistent cough since 2018, depression, anxiety, headaches Social History - Living Situation Living arrangement: At home Living Situation: With spouse/s.o. Support System: Patient lives with her second , they have been for 25 years. She had a fairly traumatic first marriage, from which she had 3 children's and is currently estranged from her 3 sons. They have minimal support in the community, as they did move in when COVID started. Her abigail is very important to her, she is very self reflective and meditative. She is very anxious as things have made things more complicated with her increasing care needs, uncertainty and now with insurance issues between her and her . Medications/Allergies - Medications Home Medications: Ambulatory Orders Medication Instructions Recorded Confirmed oxyCODONE [Roxicodone] 20 - 30 mg PO Q3HR PRN 06/29/21 07/25/21 Albuterol 1 amp INH TID 07/06/21 07/25/21 dexAMETHasone [Decadron] 2 mg PO BIDWM 07/06/21 07/25/21 Morphine ER [Morphine Sulfate ER] 60 mg PO .120 AM/60 AFT/120PM 07/07/21 07/25/21 Senna [Senokot] 2 mg PO TID 07/08/21 07/25/21 Nystatin [Mycostatin] 5 ml PO QID MDD 10 days 07/11/21 07/25/21 polyethylene glycoL 3350 [Miralax] 17 gm PO DAILY MDD BID 07/11/21 07/25/21 Magnesium Citrate 100 ml PO PRN PRN 07/13/21 07/25/21 - Allergies Allergies/Adverse Reactions: Allergies Allergy/AdvReac Type Severity Reaction Status Date / Time acetaminophen Allergy Anxiety Verified 07/07/21 13:54 Penicillins Allergy Hives Verified 07/07/21 13:54 Review of Systems - Constitutional Constitutional: reports: Fatigue (persistent), Weakness (worsening), Weight loss. denies: Fever, Chills - Eyes Eyes: reports: Blurred vision, Vision loss - Ears, Nose & Throat Ears, Nose & Throat: reports: Hearing loss, Dentures, Dry mouth. denies: Mouth lesions (responded to Nystatin-doing 2-3 a day) - Cardiovascular Cardiovascular: reports: Lightheadedness, Exertional dyspnea, Decr. exercise tolerance - Respiratory Respiratory: reports: Cough (coughing spasms had resolved until one last night; using saline "fishes" to help too), SOB at rest, SOB with exertion. denies: Whe ezing, Hemoptysis - Gastrointestinal Gastrointestinal: reports: Abdominal pain, Nausea (controlled with ondansetron), Vomiting (triggered by coughing), Early satiety (improved but still getting less than caloric needs). denies: Constipation (resolved doing better), Reflux/heartburn - Genitourinary Genitourinary: reports: Frequency, Other (toileting is difficult because of pain/ambulation) - Musculoskeletal Musculoskeletal: reports: Muscle pain, Back pain, Muscle aches, Stiffness, Limited range of motion, Muscle weakness, Joint pain, Assistive devices (ambulating just a few steps with rolling walker), Other (awaiting still hospital bed) - Integumentary Integumentary: reports: Dryness - Neurological Neurological: reports: General weakness, Headache, Dizziness - Psychiatric Psychiatric: reports: Depression, Anxiety (overwhelmed and distressed with insurance issues/pain meds) - All Other Systems All Other Systems: reports: Reviewed and negative Physical Exam - Vital Signs Temperature: 97.2 C Pulse Rate: 90 Respiratory Rate: 18 O2 Saturation: 93 (ra @ rest) Blood Pressure: 122/72 - Physical Exam General Appearance: positive: Alert, Moderate distress, Anxious Eyes Bilateral: positive: Normal inspection, No scleral icterus ENT: negative: Oral lesions (improved) Neck: positive: Trachea midline Cardiovascular: positive: Regular rate & rhythm, Tachycardia Respiratory: positive: Diminished throughout. negative: No respiratory distress (with any effort RR), Wheezes, Rales, Rhonchi Abdomen: positive: Soft, Tenderness, Guarding Skin: positive: Pallor, Dryness Extremities: positive: No pedal edema Neurologic/Psychiatric: positive: Oriented x3, Weakness, Depressed mood/affect, Flat affect Palliative Care - POLST Patient has POLST: Yes POLST Status: DNR, Selective Treatment Pain: Pain worsening, Location (right pelvis/hip area; worsening with standing; had been "holding back" on oxycodone because of insurance issues;), Severity (8/10 down to 6/10 with oxy;), Comment (currently on MS 120 mg AM, 60 mg 1400, 120 mg PM only has enough paid through [facility] until Monday morning; remains confusing what is approved with pharmacy and insurance company) Tiredness/Fatigue: Moderate (4-6) Drowsiness/Sedation: None Nausea: Mild (1-3) Anorexia: Moderate (4-6) Dyspnea: Mild (1-3) Depression: Severe (7-10) Anxiety: Severe (7-10) Feelings of wellbeing/Perceived Quality of Life: Poor, Worsening, Comment (had been improving with improved pain management; now overwhelmed with issues with pain meds) Sleep: Sleep improved, Variable sleep pattern (pain escalates with needing to ambulate at night; needs assistance; hoping hospital bed will help) Constipation: Yes, Opoid induced, Managed Performance Status: Patient able to ambulate a few steps with walker and offloading pain, does spend most of time in the recliner, which is not very comfortable as it bends right at her groin area. Hoping hospital bed will provide better positioning. Does need assistance with bathing, getting in and out of bed, and toileting. - Palliative Care Discussion: Family meeting with and patient. Patient is feeling like a significant burden, feels abandoned in the context that needing to fight for her pain medication, testing, and services she is needs to move forward and treating her lung cancer. It has caused significant financial stressors, with needing to pay [id number] for pain meds. Is very frustrated by this system, and wanted to throw in the towel though these were not her original goals. We discussed what is most important to her, she would like to look for quality and quantity of life, patient would benefit from radiation, she would like to finish her work- up, and see what her options are. Unfortunately she heard that insurance denied further testing as well. Counseling provided regarding encouraging patient to consider continue working through steps to meet her goals, she at any point in time can choose supportive care or transition to hospice. Did call to facilitate MRI of the brain, had not heard anything. Follow-up on bed is expected to be delivered next week, and continue to work with pharmacy insurance regarding getting appropriate pain medications in. Patient able to verbalize her feelings regarding the impact on her and her , is supportive of either way which patient wants to go. They definitely need more assistance and support in the home.They have been working with Angi the perinatal social worker at [facility], encouraged him to go seek her out. They do have a fairly large spend down for Medicaid, suspect this is the same for [place]. Encouraged him to continue to stay in communication when they are getting this information, both with palliative care PHOTO JOURNALIST, and palliative care nurse Isabel. Results - Lab Results Lab results reviewed: Yes Impression and Recommendations - Palliative Care Impression: This is a 65-year-old woman who presents with metastatic lung cancer stage IV, with known bony mets, liver, mediastinal lymph nodes. Her pain has been improving with titration of pain medication, unfortunately has been overwhelmed and distressed with process of getting medications and insurance approvals. Patient with increasing care needs, financial stressors, and worried about the burden on her . Family meeting to elicit further goals of care, s upportive care versus pursuing work-up and treatment. After much discussion, barriers were more related to pain medication, not her current goals. We did discuss at any point in time can transition to supportive or hospice care, encouraged to stay in communication with team. Palliative care continue provide support for pain and symptom management and coordination of care Recommendations/Counseling Done: 1. Pain of neoplastic origin. Patient presents with multifactorial pain, including visceral, bone pain, muscle and joint pain and most sustained per persistent worsening pain is in her right lower back pelvis area. She is being titrated fairly rapidly given her severe pain levels, currently today is on morphine 120 mg a.m., 60 mg p.m. and 120 mg at bedtime. She has been not taking her oxycodone as she is worried about running out, approval of this has gone through, encouraged to continue to medicate to level of comfort. So can continue to titrate appropriately. Patient has oxycodone 20 to 30 mg available every 3 hours as needed for breakthrough pain. Patient acknowledged understanding, and will continue to track and work with PHOTO JOURNALIST to get adequate pain management. Unfortunately still having issues with insurance, does only have enough Monday morning, still at time Monday afternoon had not been approved. 2. Cough. This is to have had some improvement, she is using saline "fishes" in between nebulized solution, she does feel fairly short of breath but is less distressed with coughing spasms. I suspect opioid are helping as well. 3. Anorexia. Patient does report some difficulty still with swallowing, continues with early satiety, but is having decreased pain and nausea. She is eating better, is using ondansetron prior to eating with improvement. She has been able to stay hydrated, though caloric count is probably less than needed. She has made some improvement though. 4. Constipation. She is currently taking MiraLAX daily, and continue with senna, reviewed again titration of bowel program. She does feel like this is improving. 5. Metastatic lung adenocarcinoma stage IV. She does have a definitive dose diagnoses, still awaiting tumor molecular profile for treatment options, did help facilitate MRI of the brain for final staging, after much discussion, weighing benefits and burdens, at this time she will move forward with palliative treatment versus hospice. She would also benefit greatly from radiation treatment. 6. Generalized weakness. Patient continues to have limitations not only from weakness, but also pain with transfers. Awaiting arrival hospital bed to help with transfer for some positioning to improve pain. She does have a rolling walker, as well as a raised toilet seat. Reviewed with again encouraged to follow through on [place] for increased support and home. He is thinking about taking some time off, though this is a stressful time at work.Concerned about patient being home alone, being able to access help. Did discuss considering looking at [employer] alert systems, to be able to call for assistance. She will look into this.When she does qualify for [place], this can be covered service. 7. Advanced care planning. Patient does have POLST with [facility] AR/DNI and selective treatments, she continues to struggle with being a burden, wanting to go for both quantity and quality of life. After much discussion, patient this point time will defer hospice referral, continue working with oncology and palliative care with hope for treatment options. 60 minutes with greater than 50% of this done in counseling regarding pain and symptom management, eliciting goals of care, psychosocial support, counseling for anxiety and depression but with both patient and , coordination of care. Follow-up on where radiation referral is, this would help her pain management.
== END 2021-07-23 11:31 | disposition home or self-care (01) ==
LOC: PC 11:30
PROVIDERS: ATTEND Nurse Practitioner Adult Health
DX: Z51.5 Encounter for palliative care (principal); C34.90 Malignant neoplasm of unspecified part of unspecified bronchus or lung; G89.3 Neoplasm related pain (acute) (chronic); C78.7 Secondary malignant neoplasm of liver and intrahepatic bile duct; C77.1 Secondary and unspecified malignant neoplasm of intrathoracic lymph nodes; C79.51 Secondary malignant neoplasm of bone; R05.9 Cough, unspecified; R63.0 Anorexia; K59.00 Constipation, unspecified; R53.1 Weakness; Z66 Do not resuscitate
CPT/HCPCS: 99350

== ENCOUNTER 2021-07-29 12:38 | Outpatient (CLI) | payer BC, MEDICAID ==
[2021-07-29] MEDS ORDERED: GADOBUTROL 10 MMOL/10 ML VIAL ONE (13:03)
[2021-07-29] MEDS ORDERED: GADOBUTROL 10 MMOL/10 ML VIAL IVP ONE (16:42)
--- NOTE | 2021-07-29 19:38 | MRI Report ---
PROCEDURE: MRI brain with and without contrast INDICATIONS: 65-year-old female with history of lung cancer. CONTRAST: IV CONTRAST: Gadavist ml: 9.9 TECHNIQUE: Noncontrast axial T1 spin echo, axial T2 fast spin echo, sagittal and axial FLAIR, coronal T2 fast sp in echo, axial gradient echo, axial diffusion and ADC through the brain. After the administration of contrast, axial and coronal T1 spin echo with fat saturation through the brain. COMPARISON: None. FINDINGS: Image quality: Excellent. CSF spaces: Basal cisterns are patent. No extra-axial fluid collections. Ventricles are normal in size and shape. Brain: No midline shift. No intracranial bleeds or masses. No abnormal intracranial enhancement. There is cerebral volume loss for age. There is periventricular white matter chronic small vessel is chemic change. The brainstem appears normal. Diffusion-weighted images demonstrate no acute ischemi c insults. No chronic ischemic insults. Normal intravascular flow voids are present. Moderate cerebral and cerebellar atrophy present. There there are multifocal white matter hyperintens ities in the deep and subcortical white matter without enhancement consistent with microangiopathic c hronic ischemic change Skull and face: Calvarial marrow is normal in signal. Orbits appear normal. Sinuses: Sinuses and mastoids appear clear other than small 1.6 cm right maxillary sinus retention c yst. IMPRESSION: Moderate atrophy and white matter chronic ischemic change without acute hemorrhage, infarct or mass l esion Reviewed by: Joshua Bustamante MD on 07/29/2021 6:37 PM [place] Approved by: Joshua Bustamante MD on 07/29/2021 6:37 PM [place] Station ID: [id number]
== END 2021-07-29 12:39 | disposition home or self-care (01) ==
LOC: DI 12:38
PROVIDERS: ATTEND Internal Medicine Hematology & Oncology
DX: C34.12 Malignant neoplasm of upper lobe, left bronchus or lung (principal); C78.01 Secondary malignant neoplasm of right lung; C78.7 Secondary malignant neoplasm of liver and intrahepatic bile duct; C79.51 Secondary malignant neoplasm of bone; G31.9 Degenerative disease of nervous system, unspecified
CPT/HCPCS: 70553; A9585

== ENCOUNTER 2021-07-30 09:00 | Outpatient (CLI) | payer BC, MEDICAID ==
--- NOTE | 2021-07-30 10:07 | CONSULTATION NOTE ---
Palliative Care Follow Up - Referral Referring Provider: Dr. Nely Ocampo Time of Visit: 0900-10 Referral setting: Home Referral Reason: Pain of neoplastic origin/Met Lung CA with mets to nodes/bone/liver - Information Sources Records reviewed: Previous records reviewed History/Review of Systems obtained from: Patient, Family ( Ramiro present) Exam limitations: No limitations - History of Present Illness Update Brief HPI Update: This is a 65-year-old woman who was recently diagnosed with stage IV lung cancer, with known mets to lymph nodes, bones and liver. She has continued to have some swallowing programs, but this has continued to improve. Her cough is better, she still is having significant dyspnea particular by end of day. Or laying down. On examination she has decreased breath sounds about 1/2-2/3 up on the left, diminished on the right. She does have a known moderate left pleural effusion, her O2 sats though are at 93% today. She has had escalating pain, mostly involving the right lower groin area sharp shooting into her leg and up through her back area. We have been escalating her doses of morphine and oxycodone, with dexamethasone 2 mg BID, But reports her pain has been uncontrolled in the last 24 to 48 hours. She had been out to get her MRI of her brain, which is negative for malignancy, and shows only moderate atrophy and white matter chronic ischemic change without hemorrhage infarct or lesions.She is needing increased assistance with any kind of transfers, toileting, and is feeling somewhat overwhelmed by these acute changes. We are still waiting on hospital bed delivery, with hope that this would ease caregiving distress. Patient has been currently on MS Contin 120 mg a.m., 60 mg afternoon and 120 mg at bedtime. She has needed escalating amounts of oxycodone, she took about 200 mg last 24 hours, 175 mg day before, 150 mg previously. We did discuss in the c ontext of her uncontrolled pain, of option to go to emergency room and be evaluated for admission for pain control, she feels currently with changes suggested that she can manage. Concern patient's pain levels are continue to increase, at this point time does not have an appointment with oncology till 08/10 for treatment planning, and has not heard from radiation therapy. Past Medical History: History of autoimmune disorder, possible RA/lupus/fibromyalgia. Osteoarthritis persistent cough since 2018, depression, anxiety, headaches Social History - Living Situation Living arrangement: At home Living Situation: With spouse/s.o. Support System: Patient lives with her second , they have been for 25 years. She had a fairly traumatic first marriage, has 3 children from this and is currently estranged from her 3 sons. Her works at the hospital, and is taking some time off, but it is quite complicated in the context they have minimal support in the community. Her abigail is very important to her, she is very self reflective and meditative. She is very anxious seems of gotten complicated in the context of her increasing care needs. They are working on [place] [facility] application. Medications/Allergies - Medications Home Medications: Ambulatory Orders Medication Instructions Recorded Confirmed oxyCODONE [Roxicodone] 30 mg PO Q3HR PRN 06/29/21 07/30/21 Albuterol 1 amp INH TID 07/06/21 07/30/21 dexAMETHasone [Decadron] 2 mg PO BIDWM 07/06/21 07/30/21 Morphine ER [Morphine Sulfate ER] 60 mg PO .120 MG/120 MG/180 07/07/21 07/30/21 Senna [Senokot] 2 mg PO TID 07/08/21 07/30/21 Nystatin [Mycostatin] 5 ml PO QID MDD 10 days 07/11/21 07/30/21 polyethylene glycoL 3350 [Miralax] 17 gm PO DAILY MDD BID 07/11/21 07/30/21 Magnesium Citrate 100 ml PO PRN PRN 07/13/21 07/30/21 Gabapentin [Neurontin] 300 mg PO TID MDD titrating up 07/30/21 07/30/21 from 1 tab HS Ondansetron [Zuplenz] 4 mg PO Q6HR PRN 07/30/21 07/30/21 - Allergies Allergies/Adverse Reactions: Allergies Allergy/AdvReac Type Severity Reaction Status Date / Time acetaminophen Allergy Anxiety Verified 07/07/21 13:54 Penicillins Allergy Hives Verified 07/07/21 13:54 Review of Systems - Constitutional Constitutional: reports: Fatigue (persistent), Weakness (worsening patient limited by pain/weakness today for tranfers), Weight loss. denies: Fever, Chills - Eyes Eyes: reports: Blurred vision, Vision loss - Ears, Nose & Throat Ears, Nose & Throat: reports: Hearing loss, Dentures, Dry mouth. denies: Mouth lesions (responded to Nystatin-doing 2-3 a day) - Cardiovascular Cardiovascular: reports: Lightheadedness, Exertional dyspnea, Decr. exercise tolerance - Respiratory Respiratory: reports: Cough (coughing spasms had resolved), Orthopnea (new worse when laying down), SOB at rest, SOB with exertion. denies: Wheezing, Hemoptysis - Gastrointestinal Gastrointestinal: reports: Abdominal pain (RLQ), Nausea (controlled with ondansetron), Early satiety (improved but still getting less than caloric needs). denies: Constipation (resolved doing better), Reflux/heartburn - Genitourinary Genitourinary: reports: Frequency - Musculoskeletal Musculoskeletal: reports: Muscle pain, Back pain, Muscle aches, Stiffness, Limited range of motion, Muscle weakness, Joint pain, Assistive devices (using walker for tranfers), Transfer issues (has commode/waiting on hospital bed) - Integumentary Integumentary: reports: Dryness - Neurological Neurological: reports: General weakness - Psychiatric Psychiatric: reports: Depression, Anxiety (worsening with pain escalation) - Hematologic/Lymphatic Hematologic/Lymph: reports: Bruising (right arm) - All Other Systems All Other Systems: reports: Reviewed and negative Physical Exam - Vital Signs Pulse Rate: 103 Respiratory Rate: 18 O2 Saturation: 93 (ra@rest) Blood Pressure: 162/72 - Physical Exam General Appearance: positive: Alert, Mild distress (with pain; currently controlled with oxy use increased), Anxious. negative: Lethargic Eyes Bilateral: positive: Normal inspection ENT: positive: No signs of dehydration Neck: positive: Trachea midline Cardiovascular: positive: Tachycardia Respiratory: positive: Other (no BS about 1/2 to 2/3 up left side; know pleural effusion; diminished on right). negative: No respiratory distress (with effort; worsens through the day), Wheezes, Rhonchi Abdomen: positive: Soft, Other (rounded) Skin: positive: Pallor, Bruising Extremities: positive: Pedal edema (trace) Neurologic/Psychiatric: positive: Oriented x3, Mood/affect nml, Weakness, Flat affect Palliative Care - POLST Patient has POLST: Yes POLST Status: DNR, Selective Treatment Pain: Pain worsening, Severity (severe with right groin; radiating down right leg and across abdomen; worsening with weight bearing; "convulsed" with pain last night) Tiredness/Fatigue: Moderate (4-6) Drowsiness/Sedation: None Nausea: Mild (1-3) Anorexia: Mild (1-3) Dyspnea: Moderate (4-6) (worsens through day) Depression: Moderate (4-6) Anxiety: Severe (7-10) Feelings of wellbeing/Perceived Quality of Life: Poor, Worsening Sleep: Sleeps poorly (with pain), Variable sleep pattern Constipation: Yes, Opoid induced, Managed, Comment (bowels moved today with little effort) Performance Status: Patient continues with deteriorating functional status, needing more assistance with transfers secondary to pain and weakness. They do have a commode and aw aiting on hospital bed. Patient does need more personal care, did deliver some depends, encouraged to decrease stress right hip groin area as able.Has been home and will be home over weekend to assist patient, continue to struggle with patient's increased care needs and supplementing with assistance. - Palliative Care Discussion: Patient was feeling overwhelmed, suspect things got triggered with her trip to the MRI. Family meeting with and patient, discussed options for acute intervention through ED, or to try and titrate pain medications to acceptable level. At this point in time they do note that is an option at any point. Patient reports she does have episodic "pockets of graze" and depends much on her abigail. She is having difficulty with being more dependent on her , and the changes in that relationship with her being more of a burden. They are trying to work together, and feel like they are making some progress. We'll continue to work on enlisting resources, she did enjoy the visit with the palliative care automobile dealer. Impression and Recommendations - Palliative Care Impression: This is an unfortunate 65-year-old woman who presents with metastatic lung cancer stage IV, with known bony mets, liver, mediastinal lymph nodes. She did have an exacerbation of her pain last 2448 hrs., will continue to titrate to effect. Did increase pain medications, will add gabapentin for neuropathic component, continue to work on trying to find more resources and delivery of bed. Palliative care continue provide support for pain and symptom management, psychosocial support, and coordination of care. Recommendations/Counseling Done: 1. Pain of neoplastic origin. Patient presents with multifactorial pain, including visceral, bone pain, muscle and joint pain, now with sharp shooting neuropathic component, most targeted pain is in her right lower back and pelvis area. She has been titrated on her morphine, has needed significant mount of oxycodone to control her pain over the last 2448 hrs., will increase her morphine to 120 mg a.m. 120 mg afternoon, and 180 at bedtime. Next refill of oxycodone will order 30 mg tabs as patient is using 3-4 tabs as needed on for breakthrough pain. She is titrating appropriately. Given her neuropathic component of her pain and escalating opioid use, will initiate gabapentin 300 mg at bedtime tonight, 300 mg twice daily for 2 days, then 300 mg 3 times daily, patient has been on gabapentin in the past. She is familiar with this medication. 2. Constipation. Patient's bowels moved today, she is currently taking MiraLAX and senna and titrating appropriately. With her decline in functional status t his is made managing toileting more complicated, though they do have a commode and depends. 3. Metastatic lung cancer stage IV, she did have her MRI which was negative for metastatic disease yesterday, does not have an appointment with her oncologist till 08/10, did leave a message to see if we could facilitate this to happen quickly, have not heard from radiation oncology either. At this point in time patient would still like to move forward with evaluating options for treatment in hopes for both quality and quantity. 4. Generalized weakness. Patient is having decline in functional status, still evaluating arrival hospital bed, does have a rolling walker, commode, raised toilet seat. They did get an application for [place] [employer], though do understand this is difficult as far as timing and finding workers. is currently home to assist with caregiving, though which is very difficult for patient to accept. 5. Advanced care planning. Patient does have POLST with DN AR/DNI and selective treatments, continues to struggle with being a burden, at this point is still treatment focus. We'll continue to revisit depending on goals of care, she is hoping for treatment options. 6. Dyspnea. Suspect patient's pleural effusion is worsening, will follow up early next week, if continues to have shortness of breath, may need follow-up chest x-ray and/or thoracentesis, will coordinate with oncology. 60 minutes with greater than 50% of this done in counseling regarding pain and symptom management, anticipatory guidance, psychosocial support, and coordination of care.
== END 2021-07-30 09:01 | disposition home or self-care (01) ==
LOC: PC 09:00
PROVIDERS: ATTEND Nurse Practitioner Adult Health
DX: Z51.5 Encounter for palliative care (principal); C34.90 Malignant neoplasm of unspecified part of unspecified bronchus or lung; G89.3 Neoplasm related pain (acute) (chronic); C78.7 Secondary malignant neoplasm of liver and intrahepatic bile duct; C77.1 Secondary and unspecified malignant neoplasm of intrathoracic lymph nodes; C79.51 Secondary malignant neoplasm of bone; K59.03 Drug induced constipation; T40.2X5A Adverse effect of other opioids, initial encounter; R53.1 Weakness; Z66 Do not resuscitate
CPT/HCPCS: 99350

== ENCOUNTER 2021-08-05 11:35 | Outpatient (CLI) | payer BC, MEDICAID ==
--- NOTE | 2021-08-05 12:05 | XRAY Report ---
PROCEDURE: Chest 2 View X-Ray INDICATIONS: WORSENING, L PLEURAL EFFUSION W/TROPNEA TECHNIQUE: 2 view(s) of the chest. COMPARISON: None. FINDINGS: Surgical changes and devices: None. Lungs and pleura: Moderate left pleural effusion is seen with atelectasis of left lower lobe 07/08/2021 study. Diffuse micronodular pattern throughout bilateral lung baez are again seen. 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 Mediastinum: Mediastinal contours are normal. Heart size is normal. Bones and chest wall: No suspicious bony abnormalities. Soft tissues appear unremarkable. IMPRESSION: Interval worsening of left pleural effusion with near complete atelectasis of left lower lobe. Persistent micronodular pattern throughout bilateral lung baez with stable appearing left polanco prahilar mass. No gross pneumothorax. Reviewed by: Cosmo Livingston MD on 08/05/2021 12:04 PM PST Approved by: Cosmo Livingston MD on 08/05/2021 12:04 PM PST Station ID: [id number]
== END 2021-08-05 11:36 | disposition home or self-care (01) ==
LOC: DI 11:35
PROVIDERS: ATTEND Nurse Practitioner Adult Health
DX: J90 Pleural effusion, not elsewhere classified (principal); R06.01 Orthopnea; J98.11 Atelectasis; R91.8 Other nonspecific abnormal finding of lung field

== ENCOUNTER 2021-08-06 13:00 | Outpatient (CLI) | payer BC, MEDICAID ==
--- NOTE | 2021-08-07 16:59 | CONSULTATION NOTE ---
Palliative Care Follow Up - Referral Referring Provider: Dr. Nely Ocampo Time of Visit: [id number] Referral setting: Home Referral Reason: Pain of neoplastic origin/Met Lung CA to bone/liver/node - Information Sources Records reviewed: Previous records reviewed History/Review of Systems obtained from: Patient, Family ( Ramiro present) Exam limitations: No limitations - History of Present Illness Update Brief HPI Update: This is a 65-year-old woman who was recently diagnosed with stage IV lung cancer, with known mets to lymph nodes, bones, and liver. In 2018 she developed a severe cough, included worsening bone and joint pain, and became quite debilitated. She did finally go see a physician, we did take some time to convince them that she was worsening, she did get a CT scan on 07/05 that showed enlarged anterior mediastinal lymph nodes, suspected to be adding to her swallowing problems, lung nodules, metastatic disease involving T8, 10, and 11 and a lytic lesion involving the right side of S1 with soft tissue mass extending into the right S1 sacral canal. Unfortunately it was a significant time period for her to get her cancer worked up, she finally got a biopsy of her lung, but did show adenocarcinoma, she just met with oncology, she is not a candidate for cytotoxic chemotherapy, nor immunotherapy. They are still waiting on a molecular target, unfortunately her insurance has declined foundation 1 testing. There is pending further pathology results, with hope to find something to offer patient. Patient was offered radiation for control of disease and pain, patient felt too overwhelmed to be able to incorporate that with her current level of pain, debility, and impact needed for transportation and time away from 's work. I am meeting with the patient, she has continued to have rapidly escalating pain, most of this is concentrated in the area of where her sacral masses, she describes sharp shooting pain both down her right leg and up into her spinal area, worsening with any weightbearing, twisting, or change in positioning. She is awaiting a hospital bed to help help with less painful transfers. She also has significant dyspnea, did do a follow-up chest x-ray with the hope for ability to provide relief. She did have a left pleural effusion, though in consult with radiology, does not feel the amount is large enough to have given her any relief and most likely is related to the tumor burden in the lung.Patient is quite tearful, given her increasing debility, escalating pain, and high symptom burden did recommend transition to hospice. She would like to wait out and see if Dr. Alla NEWELL has anything else to offer, but will consider this over the weekend. Pain continues to be challenging, she has been taking 120 mg of sustained- release morphine 2 times a day with 180 the third dose at bedtime, but still requiring high levels of oxycodone, of anywhere between 250 to 300 mg in 24 hours to keep the pain down. Had initiated gabapentin 300 mg 3 times daily in hopes to address the neuropathic component of this pain. She is also on dexamethasone 2 mg twice daily. She has continued to have some trouble with swallowing but this is improved, as well as her coughing. She is notably and reasonably anxious and depressed, and had hoped for both longer quantity and better quality of life at this point. Past Medical History: History of autoimmune disorder possibly RA/lupus/fibromyalgia, osteoarthritis, persistent cough since 2018, depression, anxiety, headaches Social History - Living Situation Living arrangement: At home Living Situation: With spouse/s.o. Support System: Patient lives with her second who goes by Ramiro, they have been for 25 years. She has found this very difficult to have the transition of roles, as she has always been the and caregiver. She had a fairly traumatic first marriage, has 3 children from this is currently estranged from her 3 sons. Ramiro works at the hospital, and has been taking some time off, but it is quite complicated in the context they have minimal support in the community and multiple financial stressors. Her abigail is very important to her, though is feeling quite shaken at this point. She is very self reflective and meditative. She is very anxious as things have gotten so complicated in the context of her increasing care needs. They have met with [facility] and have move forward with the [place] application. Medications/Allergies - Medications Home Medications: Ambulatory Orders Medication Instructions Recorded Confirmed oxyCODONE [Roxicodone] 30 mg PO Q3HR PRN 06/29/21 08/07/21 Albuterol 1 amp INH TID 07/06/21 08/07/21 dexAMETHasone [Decadron] 2 mg PO BIDWM 07/06/21 08/07/21 Morphine ER [Morphine Sulfate ER] 60 mg PO .120 MG/120 MG/180 07/07/21 08/07/21 Senna [Senokot] 2 mg PO TID MDD titrating to effect 07/08/21 08/07/21 Nystatin [Mycostatin] 5 ml PO QID MDD 10 days 07/11/21 08/07/21 polyethylene glycoL 3350 [Miralax] 17 gm PO DAILY MDD BID 07/11/21 08/07/21 Gabapentin [Neurontin] 600 mg PO TID MDD titrating up 07/30/21 08/07/21 Ondansetron [Zuplenz] 4 mg PO Q6HR PRN 07/30/21 08/07/21 - Allergies Allergies/Adverse Reactions: Allergies Allergy/AdvReac Type Severity Reaction Status Date / Time acetaminophen Allergy Anxiety Verified 08/03/21 09:04 Penicillins Allergy Hives Verified 08/03/21 09:04 Review of Systems - Constitutional Constitutional: reports: Fatigue (worsening), Weakness (worsening patient limited by pain/weakness today for tranfers), Weight loss. denies: Fever, Chills - Eyes Eyes: reports: Blurred vision, Vision loss - Ears, Nose & Throat Ears, Nose & Throat: reports: Hearing loss, Dentures, Dry mouth. denies: Mouth lesions (responded to Nystatin-doing 2-3 a day) - Cardiovascular Cardiovascular: reports: Palpitations, Lightheadedness, Exertional dyspnea, Decr. exercise tolerance - Respiratory Respiratory: reports: Cough (coughing spasms had resolved), Orthopnea (new worse when laying down), SOB at rest, SOB with exertion. denies: Wheezing, Hemoptysis - Gastrointestinal Gastrointestinal: reports: Abdominal pain (RLQ), Nausea (controlled with ondansetron), Early satiety (improved but still getting less than caloric needs), Other (difficulty swallowing; using pills in pudding). denies: Constipation (resolved doing better), Reflux/heartburn - Genitourinary Genitourinary: reports: Frequency - Musculoskeletal Musculoskeletal: reports: Muscle pain, Back pain, Muscle aches, Stiffness, Li mited range of motion, Muscle weakness, Joint pain, Assistive devices (using walker for tranfers; ran out of oxycodone so currently sitting still in recliner), Transfer issues (has commode/waiting on hospital bed to be delivered today) - Integumentary Integumentary: reports: Dryness - Neurological Neurological: reports: General weakness - Psychiatric Psychiatric: reports: Depression, Anxiety (worsening with pain escalation) - Hematologic/Lymphatic Hematologic/Lymph: reports: Bruising (right arm) - All Other Systems All Other Systems: reports: Reviewed and negative Physical Exam - Vital Signs Temperature: 97.5 C Pulse Rate: 92 Respiratory Rate: 20 Blood Pressure: 152/92 - Physical Exam General Appearance: positive: Alert, Mild distress (with pain;), Anxious. negative: Lethargic Eyes Bilateral: positive: Normal inspection ENT: positive: No signs of dehydration Neck: positive: Trachea midline Cardiovascular: positive: Tachycardia Respiratory: positive: Other (no BS about 1/2 to 2/3 up left side; known worsening pleural effusion; diminished on right). negative: No respiratory distress (with effort; worsens through the day), Wheezes, Rhonchi Abdomen: positive: Soft, Other (rounded) Skin: positive: Pallor, Bruising Extremities: positive: Pedal edema (trace) Neurologic/Psychiatric: positive: Oriented x3, Mood/affect nml, Weakness, Flat affect Palliative Care - POLST Patient has POLST: Yes POLST Status: DNR, Selective Treatment Pain: Pain worsening, Location (see HPI), Severity (8/10) Tiredness/Fatigue: Severe (7-10) Drowsiness/Sedation: Mild (1-3) Nausea: Mild (1-3) Anorexia: Moderate (4-6), Weight loss Dyspnea: Severe (7-10) (worsens through day; better with head up) Depression: Severe (7-10) Anxiety: Severe (7-10) Feelings of wellbeing/Perceived Quality of Life: Poor, Worsening Sleep: Sleeps poorly Constipation: Yes, Opoid induced, Managed Performance Status: Patient with declining functional status, this is related both to generalized weakness, worsening pain and ability to put weight on right leg. Needing increased assistance with any kind of transfers, is looking forward to having the hospital bed. - Palliative Care Discussion: Discussed with patient treatment options, particularly around the radiation. Patient just does not feel that this would add to her quality of life, and may take what ever quantity of life she has left and make it more miserable. She was hopeful for better outcome, is still awaiting if there is anything else that might assist her as far as "targeted therapy". Have put out a query to Dr. Ramos in trying to get a timeline on this. Patient's goals are comfort focused, she does not want to go to the hospital. She has some significant misconceptions about what hospice is, just not feeding or eating you and letting you swabbing your lips. We discussed at length that it was living until you are dying, but the extra level support would be of help for both her and Ramiro. That she would not be dealing with all these medication issues and have better access to equipment and assistance particularly on the weekends. She would like to put off this decision until she knows if she has a treatment option. Did tell her at any point in time she could make that transition. She is quite tearful and overwrought, we did discuss no treatment options, most likely were talking weeks to months, which is an answer to her question. Results - Lab Results Lab results reviewed: Yes Impression and Recommendations - Palliative Care Impression: This is an unfortunate 65-year-old woman who presents with metastatic lung cancer stage IV, with known bony mets, liver, mediastinal nodes and sacral mass. She continues to have a escalating pain, with titrating medications up. At this point in time she has declined radiation therapy, awaiting if targeted therapy is an option, is not a candidate for cytotoxic or immunotherapy unfortunately. She is presenting with high symptom burden, goals are to focus on comfort and quality of life, I have made the recommendation she transition to hospice she would like to wait a week or 2 before making that decision. Palliative care continue to provide support for pain and symptom management, psychosocial support and coordination of care as well as anticipatory guidance. Recommendations/Counseling Done: 1. Pain of neoplastic origin. Patient presents with multifactorial pain, including visceral, bone pain muscle and joint pain, and sharp shooting neuropathic component most likely from compression in her spine. Pain is targeted in her right lower back and pelvis area, worsening with weightbearing. She has been titrated on her morphine, continues to need a significant amount of oxycodone, will go ahead and increase breakthrough pain medication to 30 mg every 3 hours. Given her neuropathic component, will increase the gabapentin currently at 300 mg 3 times daily with goal for 600 mg 3 times daily. Currently on morphine 1:20 AM 1:20 PM and 180 at bedtime. This may need to be titrated as well. 2. Constipation. Patient reports she is staying on top of this, with MiraLAX and senna titrating appropriately. With her decline in functional status managing toileting is more complicated. 3. Dyspnea. This is most pronounced with laying flat, has significant orthopnea. Worsens with fatigue through the day. Did have chest x-ray with hope to be able to provide some relief with the thoracentesis, and follow-up with radiologist did not feel this was going to be of benefit. Patient would have done well with radiation, but has declined related to both social and financial stressors. She also does not want to in the context of goals spend her time traveling and exacerbate her pain. Finally after several weeks, hospital bed should be delivered today, this will help with transfers, dyspnea and positioning for better breathing. 4. Metastatic lung cancer stage IV. Unfortunately she does not have any treatment options other than radiation, they are still trying to locate a targeted therapy that may be appropriate. Her insurance turned down foundation 1 testing, Dr. Ocampo even did a peer to peer review. This is quite disappointing to patient, she was hoping for both quantity and quality of life and a more simplistic treatment plan. Am waiting for outcome on final path decisions, as patient would be better supported through transition to hospice team. 5. Anxiety. Patient presents appropriately with escalating anxiety given her limited treatment options, worsening pain, and increasing care needs. They have met with [facility] for assistance with filling out billy application and Medicaid. has been taking time off to provide support, would benefit from increased support and home. 6. Advanced care planning. Patient does have POLST with DN AR/DNI and selective treatments. Counseling provided regarding hospice and misconceptions, focusing on living not dying, would be more robust support. Patient very dependent on provider, discussed transitioning to hospice team, could continue as attending to provide support. She has seen platform engineer, suspect once bonded to hospice team will be more accepting. 60 minutes with greater than 50% of this done in counseling regarding goals of care, pain and symptom management, psychosocial support, and anticipatory guidance. Counseling provided regarding hospice team, coordination of care with hospice team requested consider referral midweek if no treatment options.
== END 2021-08-06 13:01 | disposition home or self-care (01) ==
LOC: PC 13:00
PROVIDERS: ATTEND Nurse Practitioner Adult Health
DX: Z51.5 Encounter for palliative care (principal); G89.3 Neoplasm related pain (acute) (chronic); R06.01 Orthopnea; F41.9 Anxiety disorder, unspecified; R63.0 Anorexia; R68.81 Early satiety; R53.83 Other fatigue; R13.10 Dysphagia, unspecified; R53.1 Weakness; K59.03 Drug induced constipation; T40.2X5A Adverse effect of other opioids, initial encounter; C79.51 Secondary malignant neoplasm of bone; C78.7 Secondary malignant neoplasm of liver and intrahepatic bile duct; C77.1 Secondary and unspecified malignant neoplasm of intrathoracic lymph nodes; Z79.899 Other long term (current) drug therapy; Z79.891 Long term (current) use of opiate analgesic; Z79.52 Long term (current) use of systemic steroids; Z66 Do not resuscitate
CPT/HCPCS: 99350

== ENCOUNTER 2021-08-13 10:35 | Outpatient (CLI) | payer BC, MEDICAID ==
--- NOTE | 2021-08-13 17:46 | CONSULTATION NOTE ---
Palliative Care Follow Up - Referral Referring Provider: Dr. Nely Ocampo Time of Visit: [id number] Referral setting: Home Referral Reason: Pain of Neoplasm/Met Lung Ca/ACP - Information Sources Records reviewed: Previous records reviewed History/Review of Systems obtained from: Patient Exam limitations: No limitations - History of Present Illness Update Brief HPI Update: This is a carmen 65-year-old woman who was diagnosed with stage IV lung cancer with known mets to lymph nodes, bone, and liver. She is seen with in her home for follow-up regarding pain of neoplastic origin and advance care planning. Provider wore N95 mask. Of note, in 2018 she developed a severe fear cough including worsening bone and joint pain and became debilitated. It took some time after seeing a provider to get a CT scan which on 07/05 showed enlarged anterior medial spinal lymph nodes, suspect to be adding to her swallowing problems, lung nodules and metastatic disease involving T8, 10, and 11 and a lytic lesion involving the right side of S1 with soft tissue mass can standing into right S1 sacral canal. Given the significant delays in her oncology work-up, the patient did get a biopsy of the lung that did show adenocarcinoma and she has met with oncology however, she is not a candidate at candidate for cytotoxic chemotherapy nor immunotherapy. They are waiting on a molecular target and thus far her insurance has declined foundation 1 testing. Per the [facility] there are still waiting on response if the patient has an option with targeted treatment and this may take 2 to 4 weeks before this is known and the patient is aware today regarding these potential options. She was offered radiation however, she relays today that the time and effort to go forward with transportation, her level of pain, and underlying debility in addition to her spouse having to leave work was too overwhelming to move forward with. The patient has been followed by her primary palliative PROCESSING ENGINEER Frank who has been titrating her opioid therapy due to rapidly escalating pain. The patient Continues to have pain that is impacting her ability to function. She is presently on MS Contin 120 mg in the morning, 120 mg in the afternoon, 180 mg at bedtime. She has oxycodone 30 mg tablets for breakthrough pain that she is taking approximately 5/day. However, she reports that she is holding back for fear of running out of oxycodone due to insurance as well as the local pharmacy not having the medication readily on hand. The discs this did occur previously leading to the patient's underlying fear. She is most comfortable if she is not moving. However, she is noting increased pain first thing in the morning. She is having increased difficulty ambulating to the restroom. She reports the pain is worse with weightbearing. She does have a significant amount of dyspnea however, recent chest x-ray demonstrated a left pleural effusion which was not adequate enough for her to have a thoracentesis and radiology indicated it was most likely related to tumor burden. She did recently obtain a hospital bed and this was set up in the living room over the last week. This has allowed her to enjoy her surroundings as much as possible. Patient is seen in hospital bed, alert, engaged and mildly anxious. Past Medical History: Patient has a past medical history of autoimmune disorder possibly RA, lupus, fibromyalgia, osteoarthritis, persistent cough since 2018, depression, anxiety, headaches. Social History - Living Situation Living arrangement: At home Living Situation: With spouse/s.o. Support System: Patient lives with her second , Ramiro but have been for 25 years. Ramiro works at [employer] and has been taking time off to provide assistance. However, they have minimal support in the community and financial stressors. The patient is very active typically in the evening and will practice meditation. They have met with Senior services and are moving forward with a [place] P[employer] application. They have a cat within the home. Medications/Allergies - Medications Home Medications: Ambulatory Orders Medication Instructions Recorded Confirmed oxyCODONE [Roxicodone] 30 mg PO Q3HR PRN 06/29/21 08/07/21 Albuterol 1 amp INH TID 07/06/21 08/07/21 dexAMETHasone [Decadron] 2 mg PO BIDWM 07/06/21 08/07/21 Morphine ER [Morphine Sulfate ER] 60 mg PO .180MG/120 MG/180MG 07/07/21 08/07/21 Senna [Senokot] 2 mg PO TID MDD titrating to effect 07/08/21 08/07/21 Nystatin [Mycostatin] 5 ml PO QID MDD 10 days 07/11/21 08/07/21 polyethylene glycoL 3350 [Miralax] 17 gm PO DAILY MDD BID 07/11/21 08/07/21 Gabapentin [Neurontin] 600 mg PO TID MDD titrating up 07/30/21 08/07/21 Ondansetron [Zuplenz] 4 mg PO Q6HR PRN 07/30/21 08/07/21 - Allergies Allergies/Adverse Reactions: Allergies Allergy/AdvReac Type Severity Reaction Status Date / Time acetaminophen Allergy Anxiety Verified 08/03/21 09:04 Penicillins Allergy Hives Verified 08/03/21 09:04 Review of Systems - Constitutional Constitutional: reports: Fatigue (worsening), Weakness, Poor appetite, Weight loss. denies: Fever, Chills - Eyes Eyes: reports: Vision loss, Corrective lenses - Ears, Nose & Throat Ears, Nose & Throat: reports: Dentures - Cardiovascular Cardiovascular: reports: Lightheadedness, Exertional dyspnea, Decr. exercise tolerance. denies: Edema - Respiratory Respiratory: reports: Cough, SOB at rest, SOB with exertion. denies: Wheezing - Gastrointestinal Gastrointestinal: reports: Abdominal pain (RLQ), Nausea (controlled with ondansetron), Early satiety, Other (difficulty swallowing; using pills in p udding). denies: Constipation (using Miralax daily and senna 2 tablets daily with routine bowel movements typically daily.), Reflux/heartburn - Genitourinary Genitourinary: reports: Frequency - Musculoskeletal Musculoskeletal: reports: Muscle pain, Back pain, Muscle aches, Stiffness, Limited range of motion, Muscle weakness, Joint pain, Assistive devices (using walker for tranfers), Transfer issues (has commode and now with hospital bed) - Integumentary Integumentary: reports: Dryness - Neurological Neurological: reports: General weakness - Psychiatric Psychiatric: reports: Depression, Anxiety (has fear of running out of oxycodone) - All Other Systems All Other Systems: reports: Reviewed and negative Physical Exam - Vital Signs Temperature: 36.7 C Pulse Rate: 88 O2 Saturation: 95 (on RA) Blood Pressure: 160/85 - Physical Exam General Appearance: positive: No acute distress, Alert, Anxious. negative: Lethargic Eyes Bilateral: positive: Normal inspection, Other (+corrective lenses) ENT: positive: No signs of dehydration Neck: positive: Trachea midline Cardiovascular: positive: Regular rate & rhythm Respiratory: positive: No respiratory distress, Other (no BS to 1/[address] up on left lobe with known pleural effusion;). negative: Wheezes Abdomen: positive: Non-tender, Soft, Nml bowel sounds, Other (+round) Skin: positive: Pallor, Dryness Extremities: positive: No pedal edema Neurologic/Psychiatric: positive: Oriented x3, Mood/affect nml, Weakness, Other (Became appropriately tearful when speaking about potential options and weighing transitioning to hospice services) Palliative Care - POLST Patient has POLST: Yes POLST Status: DNR, Selective Treatment Pain: Pain worsening (COntinues to have pain that interferes with function. Appropriate to increase MS Contin to 180mg in AM and continue 120mg in afternoon and 180mg in evening with oxycodone 30mg every 2-3 hours as needed for pain in addition to scheduled dexamethasone and gabapentin.) Tiredness/Fatigue: Severe (7-10) Drowsiness/Sedation: Mild (1-3) Nausea: Mild (1-3) (controlled with zofran) Anorexia: Moderate (4-6), Weight loss Dyspnea: Severe (7-10), Comment (uses nebulizer, known left pleural effusion) Depression: Severe (7-10) Anxiety: Severe (7-10) Feelings of wellbeing/Perceived Quality of Life: Poor, Worsening Sleep: Sleeps poorly, Variable sleep pattern Constipation: Yes, Opoid induced, Managed Performance Status: Declining functional status due to generalized weakness and pain. Ambulatory with a walker. Has a hospital bed. Needing increased assistance due to genera lized decline. - Palliative Care Discussion: Reviewed with patient today regarding goals and treatment options as she continues to remain adamant that radiation is not feasible for her. She continues to have a desire for "targeted therapy" however according to [facility] foundation 1 has been declined and additional request for targeted therapy evaluation may take 2 to 4 weeks. Given the patient's escalating pain and generalized functional decline lengthy discussion was had today with the patient about transitioning to hospice services while waiting for final decision regarding potential for targeted therapy to provide not only medical but emotional support. With the understanding that going on hospice and if there was an ability to have targeted therapy then the patient would revoke hospice services. The patient is open to moving forward with this. A big component is she remains quite fearful about running out of her pain medication as this is oc curred previously. Therefore, she will hold back on taking her breakthrough oxycodone and will not be optimally comfortable. With hospice services in place this would alleviate this fear and decrease the burden of engagement with the pharmacy on a weekly to every other week basis with medication adjustments and lack of supply. Ultimately, the patient reports that her definition of pain has changed since beginning this journey. She recognizes that she will not be pain-free however she wishes to have a point where she is able to be more functional. She relies on her spiritual abigail and foresees that sometime in the near future she will be letting go of one world for another. Once making the decision to have hospice support the patient appeared to visibly relaxed and was appropriately tearful. Supportive and empathetic listening provided. Impression and Recommendations - Palliative Care Impression: This is a carmen and unfortunate 65-year-old female who presents with metastatic lung cancer stage IV with known bony mets, liver, mediastinal nodes and a sacral mass. She continues to have escalating pain and today we'll titrate her MS Contin further to 180 mg in the morning, 120 mg in the afternoon, 180 mg in the evening. She has declined radiation therapy and is awaiting targeted therapy as an option as she is not a candidate for cytotoxic or immunotherapy unfortunately. Her goals remain to focus on comfort and quality of life and while she is awaiting to see if targeted therapy is an option which may take several weeks, she has agreed to move forward with recommendation of a transition to hospice services to provide that support and if targeted therapy is available then she would revoke hospice services. She appears relieved in making this decision to provide support not only for herself but her spouse. Palliative care will continue to provide support for pain and symptom management, care coordination as well as anticipatory guidance until the patient transitions to hospice services next week. Recommendations/Counseling Done: 1. Pain of neoplastic origin. Multifactorial including bony metastasis pain, joint pain and muscle pain as well as a neuropathic component. Pain is worse with ambulation and weightbearing. Continues to utilize oxycodone 30 mg every 3 hours as needed however, she is holding back regarding this for fear of running out of the medication. On average she is taking about 5 oxycodone per day which equates to 220 5M ED. Given her fear of running out of medication will alter her oxycodone to 30 mg every 2-3 hours as needed for breakthrough pain and continue to record. We'll also increase her MS Contin to 180 mg in the morning, 120 mg in the afternoon, 180 mg in the evening. New Rx for MS Contin sent to [facility] and new Rx for oxycodone sent to [facility] with a total quantity of 120. Continue gabapentin as prescribed. Continue dexamethasone as prescribed. We'll continue to monitor based on the patient's administration of oxycodone and titrate MS Contin accordingly. Lengthy discussion had today regarding utilization of breakthrough pain medication and how long acting opioid therapy is working in the background. 2.Constipation. Continues to have routine bowel movements. Given increase of MS Contin advised patient to titrate senna to 2 tablets twice a day and again reviewed titration measures with goal of a soft, daily bowel movement. At the present time we'll continue MiraLAX 1 cap daily and patient aware of titration regarding this as well. Decreased functional status as well as opioid therapy is contributing. 3. Dyspnea. More pronounced when the patient is lying flat. Does have known left pleural effusion she has fared better with this symptom in regards to utilization of her hospital bed. She does express some complex psychosocial trauma with fear of suffocating. She does have a nebulizer within the home. 4. Metastatic lung cancer stage IV. Unfortunately, she does not have any treatment options other than radiation and targeted therapy that may be appropriate. Her insurance has turned down foundation 1 testing. At the present time targeted therapy per [facility] may take 2 to 4 weeks. The patient has declined radiation therapy in the context of her goals. She continues to have a desire for quality as well as quantity of time however, given her escalating symptoms has made the decision to transition to hospice services while awaiting for final results for targeted therapy. If targeted therapy is an option then she would wish to revoke hospice services to receive intervention. 5. Advanced care planning. Patient has a POLST with DN AR and DNI with selective treatment. Patient has appropriate trepidation regarding the healthcare system given her recent experiences and has bonded with the palliative care team. Supportive and lengthy discussion had regarding hospice services and the support that this would provide. Related that palliative care and hospice services were closely together and all are a part of one team and the support was significantly benefit not only the patient but her spouse as well. She is excepted in an open to receiving hospice support. Supportive and empathetic listening provided. Total time spent 65 minutes with greater than 50% of this spent in counseling and coordination of care with patient and hospice admission WIL Cuenca, contacting [facility] clinic and Dr. Ocampo, review of palliative and hospice philosophies, review of pain and symptom management and anticipatory guidance. Updated patient's primary Palliative PROCESSING ENGINEER of transition to hospice. Disclaimer: The chart note was formulated using voice recognition technology and unfortunately sound alike errors may occur.
== END 2021-08-13 10:36 | disposition home or self-care (01) ==
LOC: PC 10:35
PROVIDERS: ATTEND Nurse Practitioner Family
DX: Z51.5 Encounter for palliative care (principal); C34.90 Malignant neoplasm of unspecified part of unspecified bronchus or lung; G89.3 Neoplasm related pain (acute) (chronic); C79.51 Secondary malignant neoplasm of bone; K59.00 Constipation, unspecified; R06.00 Dyspnea, unspecified; Z66 Do not resuscitate
CPT/HCPCS: 99350

== ENCOUNTER 2021-11-02 11:50 | Outpatient (CLI) | payer BC, MEDICAID | END 2021-11-02 23:59 | disposition home or self-care (01) | LOC: LAB.R 11:50 | PROVIDERS: ATTEND Family Medicine | DX: U07.1 COVID-19 (principal) ==

== ENCOUNTER 2021-11-03 13:16 | Outpatient (CLI) | payer BC | END 2021-11-03 13:17 | disposition hospice, home (50) | LOC: EMS 13:16 | PROVIDERS: ATTEND Family Medicine | DX: Z51.5 Encounter for palliative care (principal); C34.90 Malignant neoplasm of unspecified part of unspecified bronchus or lung | CPT/HCPCS: A0425; A0428 ==